=== PATIENT | female | born 1975 | race Caucasian/White ===

== ENCOUNTER 2022-01-11 09:51 | Outpatient (REF) | payer OTHER, SELFPAY ==
[2022-01-11 15:05] LABS: CT PCR NOT DETECTED (Not Detect.); NG PCR NOT DETECTED (Not Detect.)
[2022-01-12 13:14] LABS: BV Int Neg Control Negative (Negative); BV Int Pos Control Positive (Positive)
[2022-01-15 10:16] LABS: HPV mRNA E6/E7 rflx Not Detected (Not Detected)
== END 2022-01-11 09:52 | disposition home or self-care (01) ==
LOC: HO.LAB 09:51
PROVIDERS: Visit Provider Advanced Practice Midwife
DX: Z01.419 Encounter for gynecological examination (general) (routine) without abnormal findings (principal); Z20.2 Contact with and (suspected) exposure to infections with a predominantly sexual mode of transmission; Z87.42 Personal history of other diseases of the female genital tract
CPT/HCPCS: 87480; 87491; 87510; 87591; 87624; 87660; 88142

== ENCOUNTER 2022-02-08 09:11 | Outpatient (REF) | payer OTHER, SELFPAY ==
--- NOTE | ~2022-02-08 | MM_ITS ---
EXAMINATION: MM SCREENING DIGITAL BREAST TOMOSYNTHESIS, BILATERAL CLINICAL INFORMATION: Screening. Asymptomatic. The lifetime risk of breast cancer based on the Tyrer-Cuzick Model is 10%. COMPARISON: Mammography: 10/22/2017, 04/11/2016, 02/23/2015; targeted left breast ultrasound 05/24/2017 and 03/05/2015 . TECHNIQUE: Digital breast tomosynthesis is performed in both the craniocaudal and mediolateral oblique views along with computer-aided detection (CAD). Synthesized 2D images are generated from the tomosynthesis. FINDINGS: There are scattered areas of fibroglandular density (ACR BI-RADS breast composition Category b). There are no significant masses, abnormal calcifications, or other abnormalities. Intramammary node again seen mid upper outer left breast. The axilla and skin contours are unremarkable. No significant changes. MM/MM tomosynthesis screening BI IMPRESSION: No mammographic evidence of malignancy. ASSESSMENT: BI-RADS 2: Benign RECOMMENDATION: Routine annual mammography screening. This patient's information was entered into a reminder system with a target due date for their next mammogram.
== END 2022-02-08 09:12 | disposition home or self-care (01) ==
LOC: HO.MAMMO 09:11
PROVIDERS: Visit Provider Advanced Practice Midwife
DX: Z12.31 Encounter for screening mammogram for malignant neoplasm of breast (principal)
CPT/HCPCS: 77063; 77067

== ENCOUNTER 2022-04-01 09:06 | Emergency (ER) | payer OTHER, SELFPAY ==
[2022-04-01 09:12] VITALS: BP 150/81; PULSE 80; RESP 16; TEMP 36; O2SAT 100; BMI 23.8
[2022-04-01] MEDS: Tetracaine HCl/PF 0.5% Oph Sol 4 ML DROPS 3 DROP EYE-RIGHT (10:10)
[2022-04-01] MEDS: Fluorescein Sodium STRIP 1 STRIP EYE-RIGHT (10:10)
--- NOTE | 2022-04-01 10:18 | ED.EYEPROB ---
HPI - Eye Problem General Chief complaint: Eye Problems Stated complaint: R eye irritation Time Seen by Provider: 04/01/22 09:28 Source: patient Mode of arrival: ambulatory History of Present Illness HPI Narrative: 46-year-old female presenting to the ED complaining of foreign body sensation to right eye and mild swelling. Admits two days ago while outside something blew into eye and then rubbed it and subsequently felt pain. Denies wearing glasses or contacts. Denies vision loss or change. Also reports mild yellow discharge. Denies fever, chills chief complaint: eye pain and foreign body Onset (ago): day(s) Related Data Home Medications Medication Instructions Recorded Confirmed sumatriptan succinate 25 mg tablet 25 mg PO Q2-4H PRN 01/11/22 Previous Rx's Medication Instructions Recorded metronidazole 500 mg tablet 500 mg PO BID 7 days #14 tabs 01/17/22 erythromycin 5 mg/gram (0.5 %) eye 1 appl ophthalmic (eye) 6XD 7 days 04/01/22 ointment #3.5 grams Allergies Allergy/AdvReac Type Severity Reaction Status Date / Time No Known Allergies Allergy Verified 01/11/22 09:05 [No Known Allergies*] Review of Systems Review of Systems: Constitutional: No Fever, No Chills ENT/Mouth: No Ear Pain, No Nasal Congestion, No Sinus Pain, No Hoarseness, No sore throat, No Rhinorrhea, No Swallowing Difficulty Eyes: + Eye Pain, + Swelling, No Redness, + Foreign Body, + Discharge, No Vision Changes Cardiovascular: No Chest Pain, No SOB Respiratory: No Cough, No Sputum, No Wheezing Gastrointestinal: No Nausea, No Vomiting, No Diarrhea, No Constipation, No Abdominal pain Musculoskeletal: No joint pain, No Myalgias, No Joint Swelling Skin: No Skin Lesions, No rash Neuro: No Weakness, No Numbness, No Paresthesias Yes all other systems are reviewed and are negative Constitutional: Constitutional: Reports as per [facility] [place] Past Medical History Attestation statement: The following information was validated with the patient. Medical History History of pre-eclampsia History of stroke Hx of LEEP (loop electrosurgical excision procedure) of cervix complicating Neurocysticercosis Surgical History History of colposcopy Social History Social History Advance Directives: No Advance Directives Information Provided: Yes Physical Exam Vital Signs: Vital Signs: Last Vital Signs Temp 96.8 F 04/01/22 09:12 Pulse 80 04/01/22 09:12 Resp 16 04/01/22 09:12 BP 150/81 H 04/01/22 09:12 Pulse Ox 100 04/01/22 09:12 O2 Del Method 04/01/22 09:12 BMI result Body Mass Index 23.8 Const: General: cooperative, healthy appearing and no acute distress Orientation/consciousness: patient oriented x3 Limitations: no limitations HEENT: Head: Yes normal to inspection and Yes atraumatic Ears: hearing grossly normal bilaterally General nose exam: Normal external nose present Face and sinus: Yes normal facial exam Eyes: Other: VA- L 20/20, R 20/50. + right lower eyelid internal hordeolum with mild swelling/puffiness. No erythema/warmth. EOMs intact without pain General: appearance normal, both eyes and all related structures Corneas: corneas abnormal on the right fluorescein used and abrasion at the following clock position (3) and fluorescein used Pupils: Equal, round and reactive pupils present EOM: EOMs intact bilaterally and no movement deficit Direct Ophthalmoscopy: normal light reflex and no photophobia Neck: Neck: Yes normal visual inspection and Yes no meningeal signs Resp: Effort & Inspection: normal respiratory effort and no respiratory distress Cardio: Rate: regular rate Heart sounds: S1 normal heart sound present and S2 normal heart sound present Skin: Rashes: no rashes Wounds: no wounds Neuro: General: patient oriented x3, tone normal and no meningeal signs Cranial nerves: Yes Equal, round and reactive pupils present Gait exam (Neuro): Normal gait present Extrem: General: Yes normal to inspection Medications Administered Discontinued Medications Generic Name Dose Route Start Last Admin Trade Name Freq PRN Reason Stop Dose Admin Fluorescein Sodium 1 strip 04/01/22 09:33 04/01/22 10:10 Fluorescein Sodium Strip EYE-RIGHT 04/01/22 09:34 1 strip ONCE ONE Administration Tetracaine HCl 3 drop 04/01/22 09:33 04/01/22 10:10 Tetracaine Hcl/Pf 0.5% Oph Viridiana 4 Ml Drops EYE-RIGHT 04/01/22 09:34 3 drop ONCE ONE Administration MDM - Eye Problem MDM Narrative Medical decision making narrative: 46-year-old female presenting to the ED complaining of foreign body sensation to right eye and mild swelling. On exam vital signs stable, PE as above with noted right eye cordial limb and corneal abrasion. No evidence of orbital or preorbital cellulitis. No evidence of orbital blowout fracture/trauma Plan: Erythromycin ointment Differential Diagnosis Differential diagnosis: Likely corneal abrasion, conjunctivitis and corneal ulcer; Unlikely periorbital cellulitis Medical Records Attestation: I reviewed the patient's medical records. Lab Data Attestation: I reviewed the patient's lab results. Discharge Plan Discharge Clinical Impression: Corneal abrasion, Hordeolum Patient Disposition: Home, Self-Care Instructions: Corneal Abrasion (ED), Stye (ED) Additional Instructions: You have a small corneal abrasion on your eye, apply eye ointment as prescribed. Need to follow-up with ophthalmology You also have a stye. Apply warm compresses and lightly massaged area. It is recommended you also take Claritin or Zyrtec. If you developed vision change or loss, persistent or worsening pain, area looks infected return to the emergency department Prescriptions: New erythromycin 5 mg/gram (0.5 %) ointment 1 appl ophthalmic (eye) 6XD 7 Days Qty: 3.5 0RF No Action metronidazole 500 mg tablet 500 mg PO BID 7 Days Qty: 14 0RF Rx Instructions: Take with food, Avoid alcohol and vinegar products sumatriptan succinate 25 mg tablet 25 mg PO Q2-4H PRN Rx Instructions: do not exceed 8 doses per 24 hrs Referrals: Sriram Lipscomb [Physician] - 5 days
== END 2022-04-01 10:38 | disposition home or self-care (01) ==
PROVIDERS: Emergency Provider Emergency Medicine; PCP Internal Medicine
DX: S05.01XA Injury of conjunctiva and corneal abrasion without foreign body, right eye, initial encounter (principal); H00.011 Hordeolum externum right upper eyelid; X58.XXXA Exposure to other specified factors, initial encounter; Y93.9 Activity, unspecified; Y92.9 Unspecified place or not applicable; Y99.9 Unspecified external cause status
CPT/HCPCS: 99283

== ENCOUNTER 2022-04-13 17:39 | Emergency (ER) | payer OTHER, SELFPAY ==
--- NOTE | ~2022-04-13 | CT_ITS ---
EXAMINATION: CT HEAD WITHOUT CONTRAST CLINICAL INFORMATION: Dizziness COMPARISON: 12/19/2018 TECHNIQUE: Contiguous axial imaging was performed from the skull base to vertex without intravenous administration of contrast. This CT examination was performed using dose optimization techniques as appropriate, variously including the following: *Automated exposure control *Adjustment of mA and/or kV according to patient size (this includes techniques or standardized protocols for targeted exams where dose is matched to indication/reason for exam; i.e. extremities or head) *Use of iterative reconstruction technique DLP: 693 mGy-cm FINDINGS: There is no evidence of acute intracranial hemorrhage or territorial infarction. No abnormal mass effect or midline shift is seen. Shirley to white matter differentiation is well preserved. No extra-axial fluid collections are identified. No hydrocephalus. No significant volume loss. Subtle patchy subcortical and ventricular white matter low-attenuation changes has better seen on the concurrent MRI. Stable coarse calcifications in the left caudate head, and the left anterior frontal subarachnoid space adjacent to the superior frontal gyrus. No acute osseous or soft tissue abnormality. The mastoid air cells and visualized portions of the paranasal sinuses are well aerated. CT/CT head/brain wo IV con IMPRESSION: No acute intracranial pathology.
--- NOTE | ~2022-04-13 | XR_ITS ---
EXAMINATION: XR chest 1V CLINICAL INFORMATION: Reason for Exam dizziness COMPARISON: None TECHNIQUE: XR chest 1V Tubes and lines: None Lungs and pleura: Both lungs are clear. Bilateral rounded small densities projecting over the left middle lung zone likely nipple shadow. Heart and mediastinum: The mediastinum is within normal limits.. Bones/soft tissue: Skeletal structures included are normal for patient's age. XR/XR chest 1V IMPRESSION: No radiographic evidence of acute cardiopulmonary disease.
--- NOTE | ~2022-04-13 | MR_ITS ---
EXAMINATION: MR BRAIN WITHOUT CONTRAST CLINICAL INFORMATION: Dizziness. COMPARISON: Head CT 04/13/2022. TECHNIQUE: Multiplanar, multisequence imaging of the brain was performed without intravenous contrast. FINDINGS: There is no acute infarction, mass, hemorrhage, or extra-axial collection. The ventricles, sulci, and basilar cisterns are normal in size and configuration. Mild foci of T2/FLAIR hyperintensity are seen within the cerebral white matter, a nonspecific finding which is unchanged compared with 2019. The flow voids of the major intracranial arteries appear intact. Hyperostosis of the right frontal table is again demonstrated without change. Stable mild mass effect on the frontal lobe parenchyma. There is a small amount of mastoid fluid. MR/MR head/brain wo con IMPRESSION: No acute infarct, mass lesion, intracranial hemorrhage, or evidence of hydrocephalus. Stable nonspecific foci of T2/FLAIR hyperintensity in the cerebral white matter. Stable hyperostosis of the right frontal table.
[2022-04-13 17:55] VITALS: BP 133/73; PULSE 80; RESP 16; TEMP 36.8; O2SAT 100; BMI 23.8
--- NOTE | 2022-04-13 17:57 | PC.NURSE ---
friend request to be contacted to brain picker patient when she is ready for DC or for update on plan of care, Elisha # [phone]
--- NOTE | 2022-04-13 18:18 | ECG_ITS ---
Test Reason : DIZZINESS Blood Pressure : / mmHG Vent. Rate : 071 BPM Atrial Rate : 071 BPM P-R Int : 118 ms QRS Dur : 088 ms QT Int : 386 ms P-R-T Axes : 035 033 -07 degrees QTc Int : 419 ms Normal sinus rhythm Nonspecific T wave abnormality Abnormal ECG No previous ECGs available Referred By: Larissa Albert Electronically Signed By:JOVAN DE LA VEGA MD
--- NOTE | 2022-04-13 18:21 | ED.DIZZY ---
HPI - Dizziness General Chief Complaint: Dizziness Stated Complaint: High BP, migraine, vomiting, dizzy Time Seen by Provider: 04/13/22 18:04 Source: patient Mode of arrival: ambulatory Limitations: no limitations History of Present Illness HPI Narrative: 46-year-old female came in for evaluation of dizziness. Symptoms started since yesterday at 05:00 when she woke up from sleep as room spinning and feeling everything is moving symptoms well as worsening with turning her head especially to the left side, symptoms was associated with headache, nausea, and vomiting. Symptoms improved as the day wore on then today in the morning patient woke up with similar symptoms of feeling everything is moving and spinning. Patient's symptoms worsening with looking to the left side. No ear pain or tinnitus. No fever or chills, no weakness or numbness. Patient feels like fluid moving in her left ear and the vertigo is worsening when turned the head to the left. Related Data Home Medications Medication Instructions Recorded Confirmed sumatriptan succinate 25 mg tablet 25 mg PO Q2-4H PRN 01/11/22 Previous Rx's Medication Instructions Recorded metronidazole 500 mg tablet 500 mg PO BID 7 days #14 tabs 01/17/22 erythromycin 5 mg/gram (0.5 %) eye 1 appl ophthalmic (eye) 6XD 7 days 04/01/22 ointment #3.5 grams amoxicillin 500 mg-potassium 1 tab PO BID #14 tabs 04/13/22 clavulanate 125 mg tablet (Augmentin) prednisone 20 mg tablet 20 mg PO BID #10 tabs 04/13/22 Allergies Allergy/AdvReac Type Severity Reaction Status Date / Time No Known Allergies Allergy Verified 01/11/22 09:05 [No Known Allergies*] Review of Systems Review of Systems: All other systems are reviewed and are negative Constitutional: Reports as per HPI and Reports no additional constitutional complaints Eyes: Reports as per HPI and Reports no additional eye complaints Reports system reviewed and no additional complaints, except as documented Cardiovascular: Reports as per HPI and Reports no additional cardiovascular complaints Respiratory: Reports as per HPI and Reports no additional respiratory complaints Gastrointestinal: Reports as per HPI and Reports no additional gastrointestinal complaints Genitourinary: Reports no additional female genitourinary complaints Musculoskeletal: Reports no additional musculoskeletal complaints Skin/Breast: Reports system reviewed and no additional complaints, except as docu Psychiatric: Reports no additional psychiatric complaints Endocrine: Reports no additional endocrine complaints Hematologic/Lymphatic: Reports no additional hematologic/lymphatic complaints Allergic/Immunologic: Reports no additional allergic/immunologic complaints Reports system reviewed and no additional complaints, except as documented and Reports Abnormal speech present [facility] Past Medical History Medical History History of pre-eclampsia History of stroke Hx of LEEP (loop electrosurgical excision procedure) of cervix complicating Neurocysticercosis Surgical History History of colposcopy Social History Social History Alcohol intake: current Alcohol intake frequency: other Alcohol type: beer and wine Smoked in Last 30 Days: No Use of substances other than those prescribed or required for medical reasons: No Advance Directives: No Patient : No Physical Exam Vital Signs: Vital Signs: Last Vital Signs Temp 98.1 F 04/13/22 20:00 Pulse 77 04/13/22 20:00 Resp 16 04/13/22 20:00 BP 127/68 04/13/22 20:00 Pulse Ox 100 04/13/22 20:00 O2 Del Method 04/13/22 20:00 BMI result Body Mass Index 23.8 Vital signs have been reviewed as appeared to be correct. Blood pressure normal. Heart rate normal. Respiration rate normal. Temperature normal. Oxygen saturation normal. Appearance: Alert. Oriented X3. No acute distress. Head: Normal external exam. Normocephalic. Atraumatic. No Choudhury signs noted. No raccoon eyes noted Eyes: PERRLA. EOMI. Conjunctiva and sclera normal. Eyelids normal. ENT: Left TM erythema no bulging. Pharynx normal. Uvula midline. Moist mucous membranes. No trismus noted. No drooling noted. No muffled voice noted. Neck: Normal inspection. Neck supple. FROM. No adenopathy. Thyroid Normal. No meningeal signs. No neck mass noted. CVS: Normal heart rate and rhythm. Heart sound normal. No murmurs noted. Pulses normal throughout. Respiratory: No respiratory distress. Painless inspiration. Breath sounds normal. No wheezes/rales/rhonchi noted. Chest nontender. No accessory muscle usage noted or decreased air movement noted. Abdomen: Soft and nontender. Bowel sounds normal in all 4 quadrants. No distention noted. No organomegaly noted. No visible injury noted. Back: No CVA tenderness. Full range of motion noted. Skin: Skin warm and dry. Normal skin color. Normal skin turgor. No rashes/lesions/lacerations noted. Extremities: No lower extremity edema. Extremities exhibit normal range of motion. Extremities nontender. Neuro: Oriented X 3. Cranial nerve exam: II-XII are grossly intact No motor deficit. No sensory deficit. Reflexes normal. NIH Stroke Scale Time: 18:25 Level of Consciousness: Alert Level of Consciousness Questions: Answers both questions correctly Level of Consciousness Commands: Performs both tasks correctly Best Gaze: Normal Visual: No visual loss Facial Palsy: Normal Motor Arm (Right): No drift Motor Arm (Left): No drift Motor Leg (Right): No drift Motor Leg (Left): No drift Limb Ataxia: Absent Sensory: Normal Best Language: No aphasia Dysarthia: Normal Extinction and Inattention: No abnormality Score: 0 Course Course Course Narrative: 46-year-old female came in with positional vertigo exam and history is consistent with left ear labyrinthitis will start the patient on Augmentin and prednisone. Normal neuro exam otherwise, CT/MRI of the brain is unremarkable for acute stroke or acute pathology. Unremarkable labs except for mild leukocytosis likely due to stress or labyrinthitis, patient reported improvement of her symptoms able to tolerate p.o. intake with no nausea or vomiting. Medications Administered Discontinued Medications Generic Name Dose Route Start Last Admin Trade Name Freq PRN Reason Stop Dose Admin Al Hydroxide/Mg Hydroxide 30 ml 04/13/22 18:20 04/13/22 20:05 Magnesium Hydrox/Alum Hydrox 30 Ml Oral.Susp PO 04/13/22 18:21 30 ml ONCE ONE Administration Sodium Chloride 1,000 mls @ 999 mls/hr 04/13/22 18:17 04/13/22 21:11 Ns IV 04/13/22 19:17 Infused .Q1H1M ONE Infusion Meclizine HCl 25 mg 04/13/22 18:20 04/13/22 20:05 Meclizine Hcl 25 Mg Tablet PO 04/13/22 18:21 25 mg ONCE ONE Administration Ondansetron HCl 4 mg 04/13/22 18:17 04/13/22 20:04 Ondansetron Hcl 4 Mg/2 Ml Vial IVPUSH 04/13/22 18:18 4 mg ONCE ONE Administration MDM - Dizziness Lab Data Attestation: I reviewed the patient's lab results. Result diagrams: 04/13/22 19:41 04/13/22 19:41 Labs: Lab Results 04/13/22 04/13/22 04/13/22 Range/Units 19:41 19:41 19:41 WBC 13.0 H (4.8-10.8) X10*3/uL RBC 4.46 (4.20-5.50) X10*6/uL Hgb 12.6 (12.0-16.0) g/dl Hct 38.7 (37.0-47.0) % MCV 86.8 (80.0-98.0) fL MCH 28.3 (27.0-33.0) pg MCHC 32.6 (31.0-35.0) g/dl RDW 12.6 (11.0-16.0) % Plt Count 281 (160-400) X10*3/uL MPV 10.4 (9.4-12.3) fL Immature Gran % (Auto) 0.5 H (0.0-0.4) % Neut % (Auto) 91.2 H (45-73) % Lymph % (Auto) 5.5 L (20-40) % Wood[place] % (Auto) 2.5 (2-11) % Eos % (Auto) 0.1 (0-4) % Baso % (Auto) 0.2 (0-2) % Lymph # (Auto) 0.7 L (1.2-4.9) X10*3/uL [place] # (Auto) 0.3 (0.1-1.2) X10*3/uL Eos # (Auto) 0.0 (0.0-0.4) X10*3/uL Baso # (Auto) 0.0 (0.0-0.2) X10*3/uL Abs Immat Gran (auto) 0.07 H (0.00-0.03) X10*3/uL Absolute Neuts (auto) 11.8 H (2.0-8.3) x10*3/uL Absolute Nucleated RBC 0.000 (0.0-0.012) X10*3/uL Nucleated RBC % (auto) 0.0 (0.0-0.2) /100WBC Smear Tech's Comments VERIFIED Sodium 138 (135-145) mmol/L Potassium 3.9 (3.3-5.1) mmol/L Chloride 104 (96-108) mmol/L Carbon Dioxide 24 (22-29) mmol/L Anion Gap 14 (12-20) BUN 17 H (9-16) mg/dL Creatinine 0.68 (0.5-1.4) mg/dL Estim Creat Clear Calc 80.8 Estimated GFR > 60 Random Glucose 119 H (60-115) mg/dL Calcium 9.5 (8.4-10.2) mg/dL Total Bilirubin 0.7 (0.0-1.0) mg/dL Direct Bilirubin 0.2 (0.0-0.5) mg/dL AST 17 (5-31) U/L ALT 20 (0-31) U/L Alkaline Phosphatase 85 (39-117) U/L Troponin I High Sens < 3.5 (<3.5-17.0) ng/L Total Protein 7.7 (6.5-8.0) g/dL Albumin 4.8 (3.5-5.0) g/dL Lipase 23 (8-78) U/L Urine Color Urine Appearance Urine pH (5.0-9.0) Ur Specific Cheriton (1.005-1.025) Urine Protein (Neg-Trace) mg/dL Urine Glucose (UA) (Negative) mg/dL Urine Ketones (Negative) mg/dL Urine Blood (Negative) Urine Nitrite (Negative) Ur Leukocyte Esterase (Negative) 04/13/22 Range/Units 20:52 WBC (4.8-10.8) X10*3/uL RBC (4.20-5.50) X10*6/uL Hgb (12.0-16.0) g/dl Hct (37.0-47.0) % MCV (80.0-98.0) fL MCH (27.0-33.0) pg MCHC (31.0-35.0) g/dl RDW (11.0-16.0) % Plt Count (160-400) X10*3/uL MPV (9.4-12.3) fL Immature Gran % (Auto) (0.0-0.4) % Neut % (Auto) (45-73) % Lymph % (Auto) (20-40) % Woodford % (Auto) (2-11) % Eos % (Auto) (0-4) % Baso % (Auto) (0-2) % Lymph # (Auto) (1.2-4.9) X10*3/uL Woodford # (Auto) (0.1-1.2) X10*3/uL Eos # (Auto) (0.0-0.4) X10*3/uL Baso # (Auto) (0.0-0.2) X10*3/uL Abs Immat Gran (auto) (0.00-0.03) X10*3/uL Absolute Neuts (auto) (2.0-8.3) x10*3/uL Absolute Nucleated RBC (0.0-0.012) X10*3/uL Nucleated RBC % (auto) (0.0-0.2) /100WBC Smear Tech's Comments Sodium (135-145) mmol/L Potassium (3.3-5.1) mmol/L Chloride (96-108) mmol/L Carbon Dioxide (22-29) mmol/L Anion Gap (12-20) BUN (9-16) mg/dL Creatinine (0.5-1.4) mg/dL Estim Creat Clear Calc Estimated GFR Random Glucose (60-115) mg/dL Calcium (8.4-10.2) mg/dL Total Bilirubin (0.0-1.0) mg/dL Direct Bilirubin (0.0-0.5) mg/dL AST (5-31) U/L ALT (0-31) U/L Alkaline Phosphatase (39-117) U/L Troponin I High Sens (<3.5-17.0) ng/L Total Protein (6.5-8.0) g/dL Albumin (3.5-5.0) g/dL Lipase (8-78) U/L Urine Color Yellow Urine Appearance Clear Urine pH 7.0 (5.0-9.0) Ur Specific Cheriton 1.025 (1.005-1.025) Urine Protein Trace (Neg-Trace) mg/dL Urine Glucose (UA) Negative (Negative) mg/dL Urine Ketones Trace (Negative) mg/dL Urine Blood Negative (Negative) Urine Nitrite Negative (Negative) Ur Leukocyte Esterase Negative (Negative) Imaging Data CT scan - head: Attestation: I personally reviewed and interpreted this imaging study as follows: Radiologist's impression: No acute intracranial pathology. Brain MRI: Attestation: I personally reviewed and interpreted this imaging study as follows: Radiologist's impression: No acute infarct, mass lesion, intracranial hemorrhage, or evidence of hydrocephalus. Stable nonspecific foci of T2/FLAIR hyperintensity in the cerebral white matter. Stable hyperostosis of the right frontal table. ? Chest x-ray: Attestation: I personally reviewed and interpreted this imaging study as follows: Radiologist's impression: No radiographic evidence of acute cardiopulmonary disease. ECG Data Attestation: I personally reviewed and interpreted this ECG as follows: Interpretation: Normal sinus rhythm at 71 beats per minutes, normal axis deviation, normal intervals (not significantly and slightly short PA), nonspecific T-wave inversion in the inferior leads. Discharge Plan Discharge Clinical Impression: Labyrinthitis of left ear, Peripheral vertigo Patient Disposition: Home, Self-Care Instructions: Labyrinthitis (ED), Vertigo (ED) Prescriptions: New amoxicillin-pot clavulanate [Augmentin] 500-125 mg tablet 1 tab PO BID Qty: 14 0RF prednisone 20 mg tablet 20 mg PO BID Qty: 10 0RF No Action metronidazole 500 mg tablet 500 mg PO BID 7 Days Qty: 14 0RF Rx Instructions: Take with food, Avoid alcohol and vinegar products erythromycin 5 mg/gram (0.5 %) ointment 1 appl ophthalmic (eye) 6XD 7 Days Qty: 3.5 0RF sumatriptan succinate 25 mg tablet 25 mg PO Q2-4H PRN Rx Instructions: do not exceed 8 doses per 24 hrs Referrals: Viridiana Vance MD [Primary Care Provider] -
[2022-04-13 19:48] VITALS: BP 131/74; PULSE 80; RESP 18; TEMP 36.8; O2SAT 100
[2022-04-13 19:49] VITALS: BP 131/74; PULSE 80; RESP 18; TEMP 36.8; O2SAT 100
[2022-04-13 19:52] LABS: Basophils Percent Auto 0.2 % (0-2); Eosinophils Percent Auto 0.1 % (0-4); Hematocrit 38.7 % (37.0-47.0); Hemoglobin 12.6 g/dl (12.0-16.0); Imm Gran Abs Auto 0.07 X10*3/uL (0.00-0.03); Imm Gran Pct Auto 0.5 % (0.0-0.4); Lymphocytes Absolute Auto 0.7 X10*3/uL (1.2-4.9); Lymphocytes Percent Auto 5.5 % (20-40); MANUAL DIFF FLAG SCAN; Mean Corpuscular HGB Conc 32.6 g/dl (31.0-35.0); Mean Corpuscular Hemoglobin 28.3 pg (27.0-33.0); Mean Corpuscular Volume 86.8 fL (80.0-98.0); Mean Platelet Volume 10.4 fL (9.4-12.3); Monocytes Absolute Auto 0.3 X10*3/uL (0.1-1.2); Monocytes Percent Auto 2.5 % (2-11); Neutrophils Absolute Auto 11.8 x10*3/uL (2.0-8.3); Neutrophils Percent Auto 91.2 % (45-73); Platelet Count 281 X10*3/uL (160-400); Red Blood Count 4.46 X10*6/uL (4.20-5.50); Red Cell Distribution Width 12.6 % (11.0-16.0); SCAN SMEAR FLAG 1
[2022-04-13 20:00] VITALS: BP 127/68; PULSE 77; RESP 16; TEMP 36.7; O2SAT 100
[2022-04-13] MEDS: 0.9 % Sodium Chloride 1,000 ML 999 ML IV (20:04)
[2022-04-13] MEDS: ondansetron HCL 4 MG/2 ML VIAL IVPUSH (20:04)
[2022-04-13] MEDS: Meclizine HCl 25 MG TABLET PO (20:05)
[2022-04-13] MEDS: Magnesium Hydrox/Alum Hydrox 30 ML ORAL.SUSP PO (20:05)
[2022-04-13 20:12] LABS: SLIDE REVIEW VERIFIED
[2022-04-13 20:15] LABS: Alanine Aminotransferase 20 U/L (0-31); Albumin Level 4.8 g/dL (3.5-5.0); Alkaline Phosphatase 85 U/L (39-117); Anion Gap 14 (12-20); Aspartate Amino Transferase 17 U/L (5-31); Bilirubin Direct 0.2 mg/dL (0.0-0.5); Bilirubin Total 0.7 mg/dL (0.0-1.0); Blood Urea Nitrogen 17 mg/dL (9-16); Calcium 9.5 mg/dL (8.4-10.2); Carbon Dioxide 24 mmol/L (22-29); Chloride 104 mmol/L (96-108); Creatinine Clr Calc Pharmacy 80.8; Estimated Glomerular Filt Rate > 60; Glucose Random 119 mg/dL (60-115); Lipase 23 U/L (8-78); Potassium 3.9 mmol/L (3.3-5.1); Sodium 138 mmol/L (135-145); Total Protein 7.7 g/dL (6.5-8.0)
[2022-04-13 20:17] LABS: Troponin-I High Sensitivity < 3.5 ng/L (<3.5-17.0)
--- NOTE | 2022-04-13 20:23 | PC.NURSE ---
Pt received IV fluids and meds late d/t she was in MRI. Pt received IV meds once IV site was started.
[2022-04-13 20:58] LABS: Appearance Urine Clear; Color Urine Yellow; Glucose Urine UA Negative (Negative); Leukocyte Esterase Urine Negative (Negative); Nitrite Urine Negative (Negative); Specific Gravity - Urine 1.025 (1.005-1.025); Urine Blood Negative (Negative); Urine Ketones Trace mg/dL (Negative); Urine Protein Trace mg/dL (Neg-Trace)
--- NOTE | 2022-04-13 21:01 | PC.NURSE ---
Received incoming call from friend Sage Smiley. Received verbal consent from patient okay to update friend of patient's status. Pt currently reporting nausea is improving after receiving IV zofran. Pt reporting she feels a little better compared to pre med administration. Friend requests to get a call once pt is ready for discharge as she would provide transportation to patient. Sage Smiley phone number .
[2022-04-13] MEDS: predniSONE 20 MG TABLET 40 MG PO (22:14)
[2022-04-13] MEDS: Amoxicillin/Potassium Clav 500 MG TABLET PO (22:14)
--- NOTE | 2022-04-13 22:22 | PC.NURSE ---
Discharge instructions reviewed with pt. Pt verbalizes understanding. R ac IV removed.
== END 2022-04-13 22:23 | disposition home or self-care (01) ==
PROVIDERS: Emergency Provider Emergency Medicine; PCP Internal Medicine
DX: H83.02 Labyrinthitis, left ear (principal); G43.909 Migraine, unspecified, not intractable, without status migrainosus; R42 Dizziness and giddiness; Z79.899 Other long term (current) drug therapy
CPT/HCPCS: 36415; 70450; 70551; 71045; 80048; 80076; 81003; 83690; 84484; 85025; 93005; 96361; 96374; 99285; J2405

== ENCOUNTER 2022-09-06 08:11 | Outpatient (REF) | payer OTHER, SELFPAY ==
[2022-09-06 11:11] LABS: MANUAL DIFF FLAG NO
[2022-09-06 11:34] LABS: Basophils Percent Auto 0.4 % (0-2); Eosinophils Absolute Auto 0.1 X10*3/uL (0.0-0.4); Eosinophils Percent Auto 1.7 % (0-4); Hematocrit 38.2 % (37.0-47.0); Imm Gran Abs Auto 0.04 X10*3/uL (0.00-0.03); Imm Gran Pct Auto 0.5 % (0.0-0.4); Lymphocytes Absolute Auto 1.8 X10*3/uL (1.2-4.9); Lymphocytes Percent Auto 23.9 % (20-40); Mean Corpuscular HGB Conc 31.4 g/dl (31.0-35.0); Mean Corpuscular Hemoglobin 27.8 pg (27.0-33.0); Mean Corpuscular Volume 88.6 fL (80.0-98.0); Mean Platelet Volume 11.2 fL (9.4-12.3); Monocytes Absolute Auto 0.5 X10*3/uL (0.1-1.2); Monocytes Percent Auto 6.1 % (2-11); Neutrophils Absolute Auto 5.2 x10*3/uL (2.0-8.3); Neutrophils Percent Auto 67.4 % (45-73); Platelet Count 257 X10*3/uL (160-400); Red Blood Count 4.31 X10*6/uL (4.20-5.50); Red Cell Distribution Width 13.4 % (11.0-16.0); White Blood Count 7.7 X10*3/uL (4.8-10.8)
[2022-09-06 12:27] LABS: Alanine Aminotransferase 15 U/L (0-31); Anion Gap 11 (12-20); Aspartate Amino Transferase 16 U/L (5-31); Blood Urea Nitrogen 15 mg/dL (9-16); Calcium 8.8 mg/dL (8.4-10.2); Carbon Dioxide 25 mmol/L (22-29); Chloride 110 mmol/L (96-108); Cholesterol 171 mg/dL; Estimated Glomerular Filt Rate > 60; Glucose Fasting 91 mg/dL (60-99); HDL Cholesterol 51 mg/dL; LDL Cholesterol Calculated 104 mg/dl; Potassium 4.5 mmol/L (3.3-5.1); Sodium 141 mmol/L (135-145); Triglycerides 82 mg/dL
[2022-09-06 12:34] LABS: TSH reflex Free T4 1.91 uIU/mL (0.32-4.0); Vitamin D 25-OH Total 13.6 ng/mL (>30)
== END 2022-09-06 08:12 | disposition home or self-care (01) ==
LOC: HO.HMGCLDS 08:11
PROVIDERS: PCP Internal Medicine; Visit Provider Internal Medicine
DX: G43.909 Migraine, unspecified, not intractable, without status migrainosus (principal)
CPT/HCPCS: 36415; 80048; 80061; 82306; 84443; 84450; 84460; 85025

== ENCOUNTER → 2022-10-04 14:03 | Outpatient (BNVA) | payer OTHER, SELFPAY | PROVIDERS: PCP Internal Medicine; Visit Provider Nurse Practitioner Family | DX: Z12.11 Encounter for screening for malignant neoplasm of colon (principal) | CPT/HCPCS: 99202 ==

== ENCOUNTER 2022-10-31 10:03 | Emergency (ER) | payer OTHER, SELFPAY ==
[2022-10-31 10:14] VITALS: BP 142/82; PULSE 80; RESP 18; TEMP 37.1; O2SAT 98; BMI 23.8
--- NOTE | 2022-10-31 10:31 | ED.NAVMDI ---
HPI - Nausea/Vomiting/Diarrhea General Chief complaint: Nausea/Vomiting/Diarrhea Stated complaint: Vomiting Time Seen by Provider: 10/31/22 10:31 Source: patient Mode of arrival: ambulatory Limitations: no limitations History of Present Illness HPI Narrative: This is a 46-year-old female history of migraines presenting to the emergency department complaints of fatigue, malaise, nausea, vomiting and intermittent abdominal cramping since Monday, patient reports that she vomits each time she tries to eat, she reports that her son is sick with similar symptoms. She reports associated weakness. She tells me she has actually been feeling better today and has not had an episode of nausea and vomiting but she just wanted to get evaluated. She tells me she is not having any abdominal pain, however over the past few days she just gets random Mild abdominal cramping throughout. Patient denies chest pain, shortness of breath, hematemesis, nausea, vomiting, abdominal pain, diarrhea, headache, vision changes, dizziess at this time. Related Data Home Medications Medication Instructions Recorded Confirmed sumatriptan succinate 25 mg tablet 25 mg PO Q2-4H PRN 01/11/22 Previous Rx's Medication Instructions Recorded bisacodyl 5 mg tablet,delayed 10 mg PO ONCE 1 day #2 tabs 10/04/22 release (Dulcolax (bisacodyl)) polyethylene glycol 3350 17 238 g PO ONCE #238 grams 10/04/22 gram/dose oral powder (Miralax) ondansetron 4 mg disintegrating 4 mg PO Q6H PRN nausea and 10/31/22 tablet vomiting #14 tabs Allergies Allergy/AdvReac Type Severity Reaction Status Date / Time No Known Allergies Allergy Verified 10/31/22 10:16 [No Known Allergies*] Review of Systems Review of Systems: Constitutional : No Weight loss, No Fever, No Chills, + Fatigue, + Malaise ENT/Mouth : No sore throat, No Rhinorrhea Eyes: No Eye Pain, No Swelling, No Redness Cardiovascular : No Chest Pain, No SOB, No Dyspnea on Exertion, No Orthopnea, No Edema, No Palpitations Respiratory : No Cough, No Sputum, No Wheezing Gastrointestinal : + Nausea, + Vomiting, No Diarrhea, No Constipation, No abdominal Pain, No Hematochezia, No Melena Genitourinary : No Dysuria, No Urinary Frequency, No Hematuria, Musculoskeletal : No joint pain, No Myalgias, No Joint Swelling Skin : No Skin Lesions, No rash Neuro : + Weakness, No Numbness, No Dizziness, No Headache Psych : No Anxiety/Panic, No Depression All other systems reviewed and are negative Yes all other systems are reviewed and are negative [facility] Past Medical History Attestation statement: The following information was validated with the patient. Source: old records reviewed and nursing notes reviewed Medical History Dysmenorrhea Heavy menstrual bleeding History of pre-eclampsia History of stroke Hx of abnormal cervical Pap smear Hx of LEEP (loop electrosurgical excision procedure) of cervix complicating Migraine Neurocysticercosis Surgical History History of colposcopy Social History Social History Housing: House Alcohol intake: current Alcohol intake frequency: other Alcohol type: beer and wine Patient Tobacco Use Status: Never used Tobacco e-Cigarette/Vaping Use: Never Used Advance Directives: No Advance Directives Information Provided: Yes Current occupational status: unemployed Cognitive needs: No Hearing needs: No Vision needs: No Physical Exam Vital Signs: Vital Signs: Last Vital Signs Temp 98.7 F 10/31/22 10:14 Pulse 80 10/31/22 10:14 Resp 18 10/31/22 10:14 BP 142/82 H 10/31/22 10:14 Pulse Ox 98 10/31/22 10:14 O2 Del Method Room Air 10/31/22 10:14 BMI result Body Mass Index 23.8 vital signs stable Appearance: Alert.? Oriented X3.? No acute distress.? Head: Normocephalic, atraumatic, no step-offs or deformities Eyes: Pupils equal, round and reactive to light.?? CVS: Normal heart rate and rhythm.? Pulses normal.? Respiratory: No respiratory distress.? Breath sounds normal.? Abdomen: Soft and nontender.? Negative Bryan's, Rovsing, McBurney's point. Skin: Skin warm and dry.? Normal skin color.? Normal skin turgor.? Extremities: No lower extremity edema.? No calf ttp. 5/5 strength to bilateral upper and lower extremities Neuro: Oriented X 3.? No motor deficit.? No sensory deficit. CN 2-12 intact Course Reevaluation(s) Reevaluation #1: CBC within normal limits. Chemistry unremarkable. Chemistry unremarkable. UA likely contaminated, patient without UTI symptoms, there is 6-8 epithelial cells, will not treat for UTI at this time. Flu and COVID pending. Patient to be discharged will call her if results are positive. Tolerating p.o., no abdominal tenderness on re-evaluation. Educated patient on diagnosis and treatment plan, answered all question, patient verbalizes understanding. At this time patient will be discharged home, advised to return with new or worsening symptoms. Educated on worrisome signs and symptoms and when to return. At this time I feel comfortable discharge home. Time: 11:28 Medical Decision Making Medical Decision Making [facility] Narrative: Patient is a 46 year old female presenting with 1 day of nausea, vomiting and weakness. Physical exam benign. Differential diagnosis includes likely viral illness, gastritis, gastroenteritis, COVID, flu. Unlikely bowel obstruction, appendicitis, acute cholecystitis, pancreatitis, acute abdomen, diverticulitis Plan labs, viral test Differential Diagnosis Differential Diagnoses: The differential diagnosis associated with the presentation includes Differential diagnosis includes likely viral illness, gastritis, gastroenteritis, COVID, flu. Unlikely bowel obstruction, appendicitis, acute cholecystitis, pancreatitis, acute abdomen, diverticulitis Lab Data [facility] Lab Attestation statement: I reviewed the patient's lab results. 10/31/22 10:34 10/31/22 10:34 Labs: Lab Results 10/31/22 10/31/22 10/31/22 Range/Units 10:34 10:34 11:11 WBC 10.5 (4.8-10.8) X10*3/uL RBC 4.55 (4.20-5.50) X10*6/uL Hgb 12.8 (12.0-16.0) g/dl Hct 39.4 (37.0-47.0) % MCV 86.6 (80.0-98.0) fL MCH 28.1 (27.0-33.0) pg MCHC 32.5 (31.0-35.0) g/dl RDW 13.1 (11.0-16.0) % Plt Count 274 (160-400) X10*3/uL MPV 10.5 (9.4-12.3) fL Immature Gran % (Auto) 0.2 (0.0-0.4) % Neut % (Auto) 78.7 H (45-73) % Lymph % (Auto) 16.0 L (20-40) % Granite % (Auto) 4.5 (2-11) % Eos % (Auto) 0.2 (0-4) % Baso % (Auto) 0.4 (0-2) % Lymph # (Auto) 1.7 (1.2-4.9) X10*3/uL Granite # (Auto) 0.5 (0.1-1.2) X10*3/uL Eos # (Auto) 0.0 (0.0-0.4) X10*3/uL Baso # (Auto) 0.0 (0.0-0.2) X10*3/uL Abs Immat Gran (auto) 0.02 (0.00-0.03) X10*3/uL Absolute Neuts (auto) 8.3 (2.0-8.3) x10*3/uL Absolute Nucleated RBC 0.000 (0.0-0.012) X10*3/uL Nucleated RBC % (auto) 0.0 (0.0-0.2) /100WBC Sodium 141 (135-145) mmol/L Potassium 4.1 (3.3-5.1) mmol/L Chloride 106 (96-108) mmol/L Carbon Dioxide 26 (22-29) mmol/L Anion Gap 13 (12-20) BUN 17 H (9-16) mg/dL Creatinine 0.80 (0.5-1.4) mg/dL Estim Creat Clear Calc 68.7 Estimated GFR > 60 Random Glucose 109 (60-115) mg/dL Calcium 9.7 D (8.4-10.2) mg/dL Total Bilirubin 0.7 (0.0-1.0) mg/dL Direct Bilirubin 0.2 (0.0-0.5) mg/dL AST 18 (5-31) U/L ALT 16 (0-31) U/L Alkaline Phosphatase 80 (39-117) U/L Total Protein 7.5 (6.5-8.0) g/dL Albumin 4.6 (3.5-5.0) g/dL Lipase 34 (8-78) U/L Urine Color Yellow Urine Appearance Cloudy Urine pH 6.5 (5.0-9.0) Ur Specific Lucien 1.020 (1.005-1.025) Urine Protein Negative (Neg-Trace) mg/dL Urine Glucose (UA) Negative (Negative) mg/dL Urine Ketones Negative (Negative) mg/dL Urine Blood Negative (Negative) Urine Nitrite Negative (Negative) Ur Leukocyte Esterase Large (3+) H (Negative) Core Measures AMI core measures followed: Yes Measure exclusions: not indicated Discharge Plan Discharge Clinical Impression: Viral illness, Nausea & vomiting Patient Disposition: Home, Self-Care Instructions: Acute Nausea and Vomiting (ED), Viral Syndrome (ED) Additional Instructions: Take your medications as prescribed. If you were prescribed antibiotics today, it is important that you take your medication to their entirety, do not skip any doses, do not finish them early. Follow-up with your primary care provider this week. Return to the emergency department with new or worsening symptoms. Such as fevers, chills, chest pain, shortness of breath, nausea, vomiting, dizziness, headache, vision changes, lethargy In case of emergency call 911 Drink plenty of fluids. Fab has been sent to her pharmacy for nausea and vomiting. Prescriptions: New ondansetron 4 mg tablet,disintegrating 4 mg PO Q6H PRN (Reason: nausea and vomiting) Qty: 14 0RF No Action sumatriptan succinate 25 mg tablet 25 mg PO Q2-4H PRN Rx Instructions: do not exceed 8 doses per 24 hrs bisacodyl [Dulcolax (bisacodyl)] 5 mg tablet,delayed release (DR/EC) 10 mg PO ONCE 1 Days Qty: 2 0RF Rx Instructions: take 2 tabs at noon the day before your colonoscopy polyethylene glycol 3350 [Miralax] 17 gram/dose powder 238 g PO ONCE Qty: 238 0RF Rx Instructions: As directed by gastroenterology department at [facility] Referrals: Viridiana Vance MD [Primary Care Provider] - 2 days Stand Alone Forms: Work/School Release
[2022-10-31 10:38] LABS: MANUAL DIFF FLAG NO
[2022-10-31 10:39] LABS: Basophils Percent Auto 0.4 % (0-2); Eosinophils Percent Auto 0.2 % (0-4); Hematocrit 39.4 % (37.0-47.0); Hemoglobin 12.8 g/dl (12.0-16.0); Imm Gran Abs Auto 0.02 X10*3/uL (0.00-0.03); Imm Gran Pct Auto 0.2 % (0.0-0.4); Lymphocytes Absolute Auto 1.7 X10*3/uL (1.2-4.9); Mean Corpuscular HGB Conc 32.5 g/dl (31.0-35.0); Mean Corpuscular Hemoglobin 28.1 pg (27.0-33.0); Mean Corpuscular Volume 86.6 fL (80.0-98.0); Mean Platelet Volume 10.5 fL (9.4-12.3); Monocytes Absolute Auto 0.5 X10*3/uL (0.1-1.2); Monocytes Percent Auto 4.5 % (2-11); Neutrophils Absolute Auto 8.3 x10*3/uL (2.0-8.3); Neutrophils Percent Auto 78.7 % (45-73); Platelet Count 274 X10*3/uL (160-400); Red Blood Count 4.55 X10*6/uL (4.20-5.50); Red Cell Distribution Width 13.1 % (11.0-16.0); White Blood Count 10.5 X10*3/uL (4.8-10.8)
[2022-10-31 11:01] LABS: Alanine Aminotransferase 16 U/L (0-31); Albumin Level 4.6 g/dL (3.5-5.0); Alkaline Phosphatase 80 U/L (39-117); Anion Gap 13 (12-20); Aspartate Amino Transferase 18 U/L (5-31); Bilirubin Direct 0.2 mg/dL (0.0-0.5); Bilirubin Total 0.7 mg/dL (0.0-1.0); Blood Urea Nitrogen 17 mg/dL (9-16); Calcium 9.7 mg/dL (8.4-10.2); Carbon Dioxide 26 mmol/L (22-29); Chloride 106 mmol/L (96-108); Creatinine Clr Calc Pharmacy 68.7; Estimated Glomerular Filt Rate > 60; Glucose Random 109 mg/dL (60-115); Lipase 34 U/L (8-78); Potassium 4.1 mmol/L (3.3-5.1); Sodium 141 mmol/L (135-145); Total Protein 7.5 g/dL (6.5-8.0)
[2022-10-31 11:20] LABS: Appearance Urine Cloudy; Color Urine Yellow; Glucose Urine UA Negative (Negative); Leukocyte Esterase Urine Large (3+) (Negative); Nitrite Urine Negative (Negative); PH 6.5 (5.0-9.0); UMIC TRIGGER UACC YES; Urine Blood Negative (Negative); Urine Ketones Negative (Negative); Urine Protein Negative (Neg-Trace)
[2022-10-31 11:22] LABS: Bacteria Urine 1+ (None Seen); Hyaline Casts Urine 0-2 /LPF (0-2); RBC Urine 0-2 /HPF (0-2); UACC Culture Trigger YES
[2022-10-31 11:57] LABS: COVID-19 Test Negative (Negative); IDNOW Serial# 55D5AD1C; IDNOW Serial# BCCEAD1C; Influenza A Negative (Negative); Influenza B2 Negative (Negative)
== END 2022-10-31 11:43 | disposition home or self-care (01) ==
PROVIDERS: Physician Assistant; Emergency Provider Emergency Medicine; PCP Internal Medicine
DX: R11.10 Vomiting, unspecified (principal); R10.9 Unspecified abdominal pain; B34.9 Viral infection, unspecified; Z20.822 Contact with and (suspected) exposure to COVID-19
CPT/HCPCS: 36415; 80048; 80076; 81001; 83690; 85025; 87086; 87502; 87635; 99283; 99284

== ENCOUNTER 2023-01-19 10:35 | Outpatient (REF) | payer OTHER, SELFPAY ==
[2023-01-20 09:38] LABS: CT PCR NOT DETECTED (Not Detect.); NG PCR NOT DETECTED (Not Detect.)
[2023-01-20 12:07] LABS: BV Int Neg Control Negative (Negative); BV Int Pos Control Positive (Positive)
== END 2023-01-19 10:36 | disposition home or self-care (01) ==
LOC: HO.LNP 10:35
PROVIDERS: Visit Provider Advanced Practice Midwife
DX: O34.40 Maternal care for other abnormalities of cervix, unspecified trimester (principal); O26.899 Other specified pregnancy related conditions, unspecified trimester; G43.909 Migraine, unspecified, not intractable, without status migrainosus; N92.0 Excessive and frequent menstruation with regular cycle; N94.6 Dysmenorrhea, unspecified; Z98.890 Other specified postprocedural states; Z86.73 Personal history of transient ischemic attack (TIA), and cerebral infarction without residual deficits; Z80.3 Family history of malignant neoplasm of breast
CPT/HCPCS: 0353U; 87480; 87510; 87660

== ENCOUNTER 2023-01-19 10:35 | Outpatient (AMB) | payer OTHER, SELFPAY ==
--- NOTE | 2023-01-19 11:11 | A.OFFVIS_ITS ---
Intake Vital Signs 01/19/23 11:12 Height 5 ft 2 in Weight 135 lb BMI 24.7 BP 120/80 Blood Pressure Location Lt brachial Position Sitting Intake Visit Reasons: Annual Intake Note: pelvic and back pain before her menstrual Information Interpreted: non-clinical & clinical Allergies No Known Allergies [No Known Allergies*] Allergy (Verified 01/19/23 11:16) Medication List - Last Reconciled 01/19/23 by Angela Romero CNM ondansetron 4 mg PO Q6H PRN polyethylene glycol 3350 (Miralax) 238 grams PO ONCE sumatriptan succinate 25 mg PO Q2-4H PRN Is last menstrual period known: Yes Last menstrual period: 12/20/22 Post menopausal: Yes Patient : No HPI Annual HPI Details Patient is here for an annual exam her periods have been getting a lot more uncomfortable and much more crampy and heavier. And in addition the week before she gets her. She is getting a lot more pain on 1 side or the other usually the left side. She has an appointment coming up for mammogram but she is not sure when it is. She also has a strong family his history of cancers her father has prostate cancer and is doing well her sister just got diagnosed very recently with breast cancer and just finished 3 weeks of chemo and is going to have the lump in her breast removed she also had something in her arm but that shrank with the chemo. She is going to need more chemo after the surgery as well. She also had another family relative that had some cancer she is not aware of any colon c ancers. Her sister just got the genetic test results this week and says that it is not genetic She has a history of abnormal Pap smears and had a LEEP in 2007 or . Her Pap since of been normal her last Pap was negative in 2021 and a previous negative Pap was in 2019. [facility] Medical History (Updated 01/19/23 @ 12:11 by Angela Romero CNM) Dysmenorrhea Heavy menstrual bleeding History of pre-eclampsia History of stroke Hx of abnormal cervical Pap smear Hx of LEEP (loop electrosurgical excision procedure) of cervix complicating Migraine Neurocysticercosis Surgical History History of colposcopy Family History (Updated 01/19/23 @ 11:20 by SMA Marjan) Sister Breast cancer in female Social History Housing: House Alcohol intake: current Alcohol intake frequency: other Alcohol type: beer and wine Patient Tobacco Use Status: Never used Tobacco e-Cigarette/Vaping Use: Never Used Current occupational status: unemployed Cognitive needs: No Hearing needs: No Vision needs: No Female Reproductive History Menstrual Age of Menarche: 12 Duration of menses: 6-7 days Date of last menstrual period: 12/20/22 control method: none and permanent sterilization Total pregnancies: 3 Number of Living Children: 2 Ab spontaneous: 1 Date of last pap smear: 01/13/22 (negative) History of abnormal pap smear: No History of STI: No Physical Exam Vital Signs: Last Vital Signs BP 120/80 01/19/23 11:12 BMI result Body Mass Index 24.7 Const General: healthy appearing, comfortable, no acute distress, well developed and alert Nutritional Appearance: average body habitus Orientation/consciousness: patient oriented x3 Limitations: no limitations HEENT Head: Yes normocephalic Neck Neck: Yes normal visual inspection Chest Chest palpation & inspection: normal inspection of the chest Breast/axilla inspection: normal inspection of the breasts and normal inspection of the axillae Breast/axilla palpation: normal palpation of the breasts and normal palpation of the axillae Resp Effort & Inspection: normal respiratory effort GI Inspection: Yes normal to inspection, No Abdominal wall edema and No distended Palpation (GI): Soft to palpation and nontender General: Yes bladder normal to palpation External Female Exam: normal external appearance and normal appearance of the ur ethra Speculum Exam - Vagina: normal appearance of the vagina, normal palpation and normal vaginal discharge Speculum Exam - Cervix: normal appearance of the cervix, normal palpation and nontender Bimanual exam- vagina & uterus: normal bimanual exam, normal palpation, uterine size normal, bladder normal to palpation, consistency normal, normal palpation, uterine mobility normal, uterine shape normal, No Cervical tenderness present, non-tender and no cervical motion tenderness Bimanual Exam- Adnexa, other: normal adnexae, no masses, normal and No adnexal tenderness Neuro General: patient oriented x3 Results Reviewed Results Reviewed: Name:?GrahamJessica Age/Sex: 46/F Attending: Angela Romero CNM : 1975 Submitted by: Angela Romero CNM Copies to: MR #: [id number] ? Status: DEP REF Collected: 01/11/22 Location: .LAB Received: 01/13/22 Interpretation Satisfactory for evaluation. Coccobacilli consistent with shift in vaginal la. Negative for intraepithelial lesion or malignancy. HPV mRNA E6/E7:? NOT DETECTED This assay detects E6/E7 viral messenger RNA (mRNA) from 14 high-risk HPV types (16, 18, 31, 33, 35, 39, 45, 51, 52, 56, 58, 59, 66, 68) HPV testing performed by [facility], [place], [place].? See reference laboratory pion of the EMR for entire report. Clinical Information LMP: 12/31/21 Previous PAP test: 11/13/2019, WNL Material Received ThinPrep-Cervical Electronically Signed By: YVETTE Jaimes (ASCP) ? 01/26/22 1432 The Pap Test is a? Assessment & Plan Assessment & Plan (1) Dysmenorrhea: Code(s): N94.6 - Dysmenorrhea, unspecified (2) Heavy menstrual bleeding: Code(s): N92.0 - Excessive and frequent menstruation with regular cycle (3) Migraine: Code(s): G43.909 - Migraine, unspecified, not intractable, without status migrainosus (4) History of stroke: Comment: when she had PP preeclampsia in 2019 Code(s): Z86.73 - Personal history of transient ischemic attack (TIA), and cerebral infarction without residual deficits (5) Hx of LEEP (loop electrosurgical excision procedure) of cervix complicating : Comment: 01/11/2022 Pap is negative with negative HPV. Code(s): O34.40 - Maternal care for other abnormalities of cervix, unspecified trimester; Z98.890 - Other specified postprocedural states (6) Well woman exam with routine gynecological exam: Code(s): Z01.419 - Encounter for gynecological examination (general) (routine) without abnormal findings (7) Family history of breast cancer in first degree relative: Code(s): Z80.3 - Family history of malignant neoplasm of breast Plan Patient is here for an annual exam her periods have been getting a lot more uncomfortable and much more crampy and heavier. And in addition the week before she gets her. She is getting a lot more pain on 1 side or the other usually the left side. She has an appointment coming up for mammogram but she is not sure when it is. She also has a strong family his history of cancers her father has prostate cancer and is doing well her sister just got diagnosed very recently with breast cancer and just finished 3 weeks of chemo and is going to have the lump in her breast removed she also had something in her arm but that shrank with the chemo. She is going to need more chemo after the surgery as well. She also had another family relative that had some cancer she is not aware of any colon cancers. Her sister just got the genetic test results this week and says that it is not genetic She has a history of abnormal Pap smears and had a LEEP in 2007 or 9. Her Pap since of been normal her last Pap was negative in 2021 and a previous negative Pap was in 2019. Discussed all these issues. Patient is going to double check on her mammogram make sure she gets it done. It is good that her sister's genetic testing was negative. Discussed the likelihood that she is having symptoms related to formation of a cyst after ovulation and that this can become more painful for women as they approach menopause and additionally periods can often become more crampy and nu as well I recommend a Mirena IU S to manage her symptoms but we will aim to get an ultrasound and while it may be tricky to schedule I asked her to try her best to aim to have it the week before she expects her periods so if there is a cyst there then we can see it when she is most symptomatic. We can review the ultrasound when she comes to place her Mirena IU S with her menses.. Risks of other procedures and benefits of trying this as an intervention were discussed as well as the relative risks of blood clots and other options. I did give her a brochure to read. Discussed why it might be a helpful intervention. Orders: Orders Bacterial Vaginosis Panel Today G43.909 - Migraine, unspecified, not intractable, without status migrainosus, N92.0 - Excessive and frequent menstruation with regular cycle, N94.6 - Dysmenorrhea, unspecified, O34.40 - Maternal care for other abnormalities of cervix, unspecified trimester, Z01.419 - Encounter for gynecological examination (general) (routine) without abnormal findings, Z80.3 - Family history of malignant neoplasm of breast, Z86.73 - Personal history of transient ischemic attack (TIA), and cerebral infarction without residual deficits, Z98.890 - Other specified postprocedural states CT NG by PCR Today G43.909 - Migraine, unspecified, not intractable, without status migrainosus, N92.0 - Excessive and frequent menstruation with regular cycle, N94.6 - Dysmenorrhea, unspecified, O34.40 - Maternal care for other abnormalities of cervix, unspecified trimester, Z01.419 - Encounter for gynecological examination (general) (routine) without abnormal findings, Z80.3 - Family history of malignant neoplasm of breast, Z86.73 - Personal history of transient ischemic attack (TIA), and cerebral infarction without residual deficits, Z98.890 - Other specified postprocedural states US pelvic and transvaginal Today G43.909 - Migraine, unspecified, not intractable, without status migrainosus, N92.0 - Excessive and frequent menstruation with regular cycle, N94.6 - Dysmenorrhea, unspecified, O34.40 - Maternal care for other abnormalities of cervix, unspecified trimester, Z01.419 - Encounter for gynecological examination (general) (routine) without abnormal findings, Z80.3 - Family history of malignant neoplasm of breast, Z86.73 - Personal history of transient ischemic attack (TIA), and cerebral infarction without residual deficits, Z98.890 - Other specified postprocedural states Coding Level of Care Code Est Pt Prev Care 40-64y(25285) Diagnoses Dysmenorrhea N94.6 Heavy menstrual bleeding N92.0 Migraine G43.909 History of stroke Z86.73 Hx of LEEP (loop electrosurgical excision procedure) of cervix complicating O34.40; Z98.890 Well woman exam with routine gynecological exam Z01.419 Family history of breast cancer in first degree relative Z80.3
[2023-01-19 11:12] VITALS: BP 120/80; BMI 24.7
== END 2023-01-19 12:13 | disposition home or self-care (01) ==
PROVIDERS: Visit Provider Advanced Practice Midwife
DX: Z01.419 Encounter for gynecological examination (general) (routine) without abnormal findings (principal); N94.6 Dysmenorrhea, unspecified; N92.0 Excessive and frequent menstruation with regular cycle; G43.909 Migraine, unspecified, not intractable, without status migrainosus; Z86.73 Personal history of transient ischemic attack (TIA), and cerebral infarction without residual deficits; O34.40 Maternal care for other abnormalities of cervix, unspecified trimester; Z98.890 Other specified postprocedural states; Z80.3 Family history of malignant neoplasm of breast
CPT/HCPCS: 99396

== ENCOUNTER 2023-02-09 11:14 | Outpatient (REF) | payer OTHER, SELFPAY ==
--- NOTE | ~2023-02-09 | US_ITS ---
EXAMINATION: US PELVIC AND TRANSVAGINAL CLINICAL INFORMATION: Menorrhagia. Dysmenorrhea. LMP 2-3 weeks ago. COMPARISON: CT abdomen/pelvis dated 01/04/2019. TECHNIQUE: Ultrasound of the pelvis is performed using both transabdominal and transvaginal transducers along with Doppler. Transvaginal imaging is performed due to inadequate visualization transabdominally. FINDINGS: UTERUS: The uterus is anteverted and measures 9 x 4.1 x 5.2 cm. The double wall endometrial thickness is 0.9 mm. The uterus is smooth in contour and has normal myometrial echogenicity. No visible fibroid. ADNEXA: Both ovaries are visualized. There is normal color flow to the adnexa. There is no ovarian torsion. There is no pelvic ascites or fluid collection. Right ovary measures 2.4 x 1.3 x 2.0 cm. Right ovarian volume of 3.2 mL. Left ovary measures 2.6 x 2.2 x 2.0 cm. Left ovarian volume of 7.7 mL. Thick-walled, slightly complex, left ovarian cyst with increased Doppler detectable vascular flow peripherally which could represent a corpus luteum. Small amount of pelvic free fluid. US/US pelvic and transvaginal IMPRESSION: 1. Sonographically unremarkable uterus and endometrium. 2. Probable left ovarian corpus luteum. 3. Small amount of pelvic free fluid.
== END 2023-02-09 11:15 | disposition home or self-care (01) ==
LOC: HO.US 11:14
PROVIDERS: PCP Internal Medicine; Visit Provider Advanced Practice Midwife
DX: Z01.419 Encounter for gynecological examination (general) (routine) without abnormal findings (principal); G43.909 Migraine, unspecified, not intractable, without status migrainosus; N92.0 Excessive and frequent menstruation with regular cycle; N94.6 Dysmenorrhea, unspecified; Z98.890 Other specified postprocedural states; Z86.73 Personal history of transient ischemic attack (TIA), and cerebral infarction without residual deficits; Z80.3 Family history of malignant neoplasm of breast
CPT/HCPCS: 76830; 76856

== ENCOUNTER 2023-02-13 09:34 | Outpatient (REF) | payer OTHER, SELFPAY ==
--- NOTE | ~2023-02-13 | MM_ITS ---
EXAMINATION: MM SCREENING DIGITAL BREAST TOMOSYNTHESIS, BILATERAL CLINICAL INFORMATION: Screening. Asymptomatic. COMPARISON: Mammography: 02/08/2022, 10/22/2017, 04/11/2016, 02/23/2015; targeted left breast ultrasound 05/24/2017 and 03/05/2015 TECHNIQUE: Digital breast tomosynthesis is performed in both the craniocaudal and mediolateral oblique views along with computer-aided detection (CAD). Synthesized 2D images are generated from the tomosynthesis. FINDINGS: There are scattered areas of fibroglandular density (ACR BI-RADS breast composition Category b). Intramammary lymph node again noted upper outer left breast. This is unchanged. There are no suspicious masses, suspicious grouped calcifications, or areas of architectural distortion in either breast. The parenchymal pattern is stable from prior exams. MM/MM tomosynthesis screening BI IMPRESSION: No mammographic evidence of malignancy. Stable benign findings. ASSESSMENT: BI-RADS BI-RADS 2 - Benign Findings RECOMMENDATION: Routine annual mammography screening. 1 year F/U This examination should not preclude the clinical evaluation of a suspicious palpable abnormality. This patient's information was entered into a reminder system with a target due date for their next mammogram.
== END 2023-02-13 09:35 | disposition home or self-care (01) ==
LOC: HO.MAMMO 09:34
PROVIDERS: PCP Internal Medicine; Visit Provider Internal Medicine
DX: Z12.31 Encounter for screening mammogram for malignant neoplasm of breast (principal)
CPT/HCPCS: 77063; 77067

== ENCOUNTER → 2023-02-13 09:45 | Outpatient (BNV) | payer OTHER, SELFPAY | PROVIDERS: PCP Internal Medicine; Visit Provider Radiology Diagnostic Radiology | DX: Z12.31 Encounter for screening mammogram for malignant neoplasm of breast (principal) | CPT/HCPCS: 77063; 77067 ==

== ENCOUNTER 2023-03-30 09:03 | Outpatient (AMB) | payer OTHER, SELFPAY ==
[2023-03-30 09:16] VITALS: BP 132/74; BMI 24.5
--- NOTE | 2023-03-30 09:16 | A.OFFVIS_ITS ---
Intake Vital Signs 03/30/23 09:16 Height 5 ft 2 in Weight 134 lb BMI 24.5 BP 132/74 Intake Visit Reasons: Ultrasound follow up Air Sampler Required: No Allergies No Known Allergies [No Known Allergies*] Allergy (Verified 03/30/23 09:16) Medication List - Last Reconciled 03/30/23 by Angela Romero CNM sumatriptan succinate 25 mg PO Q2-4H PRN Is last menstrual period known: Yes Last menstrual period: 03/20/23 Post menopausal: No HPI Ultrasound follow up HPI Details Patient is here for review of her ultrasound she had it done at the end of December and she says that she had it done the week before. When her symptoms are most prominent usually she typically has been getting pain on 1 side or the other typically on left side, and she also has been noticing very heavy crampy periods. 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 She is concerned about cancer because of her strong family history with her father with prostate cancer and sister with breast cancer and other relatives as well. She has a history of CECILIO 3 and a LEEP many years ago and her last Pap smears were negative and normal. We reviewed the ultrasound and is finding of a corpus luteum she also had her mammogram which shows a stable inflammatory lymph node on 1 side and the recommendation is for to watch for herself and to get yearly mammograms no follow-up was recommended for the ultrasound finding of the corpus luteum cyst [facility] Medical History Dysmenorrhea Heavy menstrual bleeding Migraine Hx of LEEP (loop electrosurgical excision procedure) of cervix complicating Hx of abnormal cervical Pap smear Neurocysticercosis History of pre-eclampsia History of stroke Surgical History History of colposcopy Family History Sister Breast cancer in female Social History Housing: House Alcohol intake: current Alcohol intake frequency: other Alcohol type: beer and wine Patient Tobacco Use Status: Never used Tobacco e-Cigarette/Vaping Use: Never Used Current occupational status: unemployed Cognitive needs: No Hearing needs: No Vision needs: No Female Reproductive History Menstrual Age of Menarche: 12 Duration of menses: 6-7 days Date of last menstrual period: 03/20/23 control method: none Date of last pap smear: 01/13/22 (negative) History of abnormal pap smear: Yes Physical Exam Vital Signs: Last Vital Signs BP 132/74 03/30/23 09:16 BMI result Body Mass Index 24.5 Results Reviewed Results Reviewed: [address] [address] Ultrasound Report Signed Patient: Jessica Graham MR#: [id number] : 1975 Acct:[id number] Age/Sex: 47 / F ADM Date: 02/09/23 Loc: HO.US Attending Dr: Angela Romero CNM Ordering Physician: Angela Romero CNM Date of Service: 02/09/23 Procedure(s): US pelvic and transvaginal Accession Number(s): [id number] cc: Viridiana Vance MD; Angela Romero CNM~ EXAMINATION: US PELVIC AND TRANSVAGINAL CLINICAL INFORMATION: Menorrhagia. Dysmenorrhea. LMP 2-3 weeks ago. COMPARISON: CT abdomen/pelvis dated 01/04/2019. TECHNIQUE: Ultrasound of the pelvis is performed using both transabdominal and transvaginal transducers along with Doppler. Transvaginal imaging is performed due to inadequate visualization transabdominally. FINDINGS: UTERUS: The uterus is anteverted and measures 9 x 4.1 x 5.2 cm. The double wall endometrial thickness is 0.9 mm. The uterus is smooth in contour and has normal myometrial echogenicity. No visible fibroid. ADNEXA: Both ovaries are visualized. There is normal color flow to the adnexa. There is no ovarian torsion. There is no pelvic ascites or fluid collection. Right ovary measures 2.4 x 1.3 x 2.0 cm. Right ovarian volume of 3.2 mL. Left ovary measures 2.6 x 2.2 x 2.0 cm. Left ovarian volume of 7.7 mL. Thick-walled, slightly complex, left ovarian cyst with increased Doppler detectable vascular flow peripherally which could represent a corpus luteum. Small amount of pelvic free fluid. US/US pelvic and transvaginal IMPRESSION: 1. Sonographically unremarkable uterus and endometrium. 2. Probable left ovarian corpus luteum. 3. Small amount of pelvic free fluid. Assessment & Plan Assessment & Plan (1) Family history of breast cancer in first degree relative: Code(s): Z80.3 - Family history of malignant neoplasm of breast (2) Hx of LEEP (loop electrosurgical excision procedure) of cervix complicating : Comment: 01/11/2022 Pap is negative with negative HPV., per discussion with patient secondary to concern consider repeating Pap in 2023. Code(s): O34.40 - Maternal care for other abnormalities of cervix, unspecified trimester; Z98.890 - Other specified postprocedural states (3) Dysmenorrhea: Code(s): N94.6 - Dysmenorrhea, unspecified Plan Patient is here for review of her ultrasound she had it done at the end of December and she says that she had it done the week before. When her symptoms are most prominent usually she typically has been getting pain on 1 side or the other typically on left side, and she also has been noticing very heavy crampy periods. 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 She is concerned about cancer because of her strong family history with her father with prostate cancer and sister with breast cancer and other relatives as well. She has a history of CECILIO 3 and a LEEP many years ago and her last Pap smears were negative and normal. We reviewed the ultrasound and is finding of a corpus luteum she also had her mammogram which shows a stable inflammatory lymph node on 1 side and the recommendation is for to watch for herself and to get yearly mammograms no follow-up was recommended for the ultrasound finding of the corpus luteum cyst. I reviewed the ultrasound finding with her and I reviewed what happens in the menstrual cycle with formation of corpus luteum cyst. Reviewed her excellent se lf-care and reviewed things to watch for in terms of any changes in her health that would indicate something needed to be evaluated further both in terms of her breasts or GI symptoms or any symptoms that could be related to ovarian changes. Menopause will be coming soon and she knows to expect that as well. We will see her in 1 year she would feel better having her Pap smear repeated next year so we will plan on that.. Coding Level of Care Code Est Pt Level 3 (41712) Diagnoses Family history of breast cancer in first degree relative Z80.3 Hx of LEEP (loop electrosurgical excision procedure) of cervix complicating O34.40; Z98.890 Dysmenorrhea N94.6
== END 2023-03-30 09:40 | disposition home or self-care (01) ==
LOC: HO.HWS 09:03
PROVIDERS: PCP Internal Medicine; Visit Provider Advanced Practice Midwife
DX: Z80.3 Family history of malignant neoplasm of breast (principal); O34.40 Maternal care for other abnormalities of cervix, unspecified trimester; Z98.890 Other specified postprocedural states; N94.6 Dysmenorrhea, unspecified
CPT/HCPCS: 99213

== ENCOUNTER → 2023-03-30 09:03 | Outpatient (BNVA) | payer OTHER, SELFPAY | PROVIDERS: PCP Internal Medicine; Visit Provider Advanced Practice Midwife | DX: N94.6 Dysmenorrhea, unspecified (principal); Z80.3 Family history of malignant neoplasm of breast; Z98.890 Other specified postprocedural states | CPT/HCPCS: 99212 ==

== ENCOUNTER 2023-06-12 12:06 | Day surgery (SDC) | payer OTHER, SELFPAY ==
--- NOTE | 2023-06-09 09:36 | HO.ANESPROP2 ---
Documented by User: Lindsay Ceja NP 06/09/23 09:38 HPI - Anesthesia Eval Consult details Narrative: 47yo F for Colonoscopy CVA r/t post pre-eclampsia 2019 [facility] Active Problems Active Problems: All Active Problems (Updated 03/30/23 @ 09:48 by Angela Romero CNM) Family history of breast cancer in first degree relative (Acute) Well woman exam with routine gynecological exam (Acute) History of stroke (Acute) Hx of LEEP (loop electrosurgical excision procedure) of cervix complicating (Acute) Dysmenorrhea (Acute) Heavy menstrual bleeding (Acute) Migraine (Acute) Past Medical History Medical History (Updated 06/12/23 @ 13:13 by Gilma Eason RN) Dysmenorrhea Heavy menstrual bleeding Migraine Hx of LEEP (loop electrosurgical excision procedure) of cervix complicating Hx of abnormal cervical Pap smear Neurocysticercosis History of pre-eclampsia History of stroke Family History Family History Sister Breast cancer in female Surgical History Surgical History (Updated 06/12/23 @ 13:26 by Gali Carpenter MD) H/O tubal ligation History of colposcopy Social History Social History Housing: House Alcohol intake: current Alcohol intake frequency: other Alcohol type: beer and wine Patient Tobacco Use Status: Never used Tobacco e-Cigarette/Vaping Use: Never Used Advance Directives: No Advance Directives Information Provided: Yes Current occupational status: unemployed Cognitive needs: No Hearing needs: No Vision needs: No Meds Allergies Allergy/AdvReac Type Severity Reaction Status Date / Time No Known Allergies Allergy Verified 03/30/23 09:16 [No Known Allergies*] Home Medications Medication Instructions Recorded Confirmed Last Taken Type sumatriptan succinate 25 mg tablet 25 mg PO Q2-4H PRN 01/11/22 03/30/23 Unknown History Exam Pertinent Lab Results Pertinent Lab Results: Laboratory Tests 10/31/22 10:34 WBC 10.5 Hgb 12.8 Hct 39.4 Plt Count 274 Sodium 141 Potassium 4.1 Chloride 106 Carbon Dioxide 26 BUN 17 H Creatinine 0.80 Assessment and Plan Assessment Anesthesia Assessment: Chart Reviewed Documented by User: Gali Carpenter MD 06/12/23 13:27 HPI - Anesthesia Eval Consult details Narrative: 47yo F for Colonoscopy CVA r/t post eclampsia 2019-patient denies.No slurring of speech. No weakness of extremities. No facial droop. Patient inuced for pre-eclampsia and went home post vaginal deliver with mild headache. Had some symptoms at home(swelling left side of neck and came back to hospital- Told she had strep throat and sent home. Returned to [facility] with symptoms of worsened headache and visual symptoms and was admitted and treated for pre-eclampsia. CT brain negative for hemorrhage or infarction PMFSH Active Problems Active Problems: All Active Problems (Updated 06/12/23 @ 12:59 by Gali Carpenter MD) Family history of breast cancer in first degree relative (Acute) Well woman exam with routine gynecological exam (Acute) History of stroke (Acute)- patient denies Hx of LEEP (loop electrosurgical excision procedure) of cervix complicating (Acute) Dysmenorrhea (Acute) Heavy menstrual bleeding (Acute) Migraine (Acute) Past Medical History Medical History (Updated 06/12/23 @ 13:13 by Gilma Eason RN) Dysmenorrhea Heavy menstrual bleeding Migraine Hx of LEEP (loop electrosurgical excision procedure) of cervix complicating Hx of abnormal cervical Pap smear Neurocysticercosis History of pre-eclampsia History of stroke Family History Family History Sister Breast cancer in female Family history of problems with anesthesia: No Surgical History Surgical History (Updated 06/12/23 @ 13:26 by Gali Carpenter MD) H/O tubal ligation History of colposcopy History of Problems with Anesthesia: No Social History Social History Housing: House Alcohol intake: current Alcohol intake frequency: other Alcohol type: beer and wine Patient Tobacco Use Status: Never used Tobacco e-Cigarette/Vaping Use: Never Used Advance Directives: No Advance Directives Information Provided: Yes Current occupational status: unemployed Cognitive needs: No Hearing needs: No Vision needs: No Meds Allergies Allergy/AdvReac Type Severity Reaction Status Date / Time No Known Allergies Allergy Verified 03/30/23 09:16 [No Known Allergies*] Home Medications Medication Instructions Recorded Confirmed Last Taken Type sumatriptan succinate 25 mg tablet 25 mg PO Q2-4H PRN 01/11/22 03/30/23 Unknown History Exam Height,Weight and Vital Signs: Height 5 ft 2 in Weight 58.967 kg Vital Signs Temp Pulse Resp BP Pulse Ox O2 Del Method 06/12/23 13:03 97.9 F 72 18 146/86 H 99 Room Air Pertinent Lab Results Pertinent Lab Results: Laboratory Tests 10/31/22 10:34 WBC 10.5 Hgb 12.8 Hct 39.4 Plt Count 274 Sodium 141 Potassium 4.1 Chloride 106 Carbon Dioxide 26 BUN 17 H Creatinine 0.80 Lab Results 06/12/23 Range/Units 12:30 Urine Test NEGATIVE (NEGATIVE) Airway Mallampati Class: III TM Dist: >3cm Neck ROM: Full Loose/Missing/Broken Teeth: Yes (Caps intact. Some broken teeth. Some missing teeth- top right back) Heart: RRR Lungs: CTAB Assessment and Plan Assessment Anesthesia Assessment: Anesthesia Plan Discussed Final Anesthetic Review Family History of Problems with Anesthesia: No History of Problems with Anesthesia: No NPO: Yes (Finished drinking prep @ 9am) ASA Class: III Final Preanesthetic Review: No Changes in Pt Med Stat, Meds/Allgs Chart Reviewed, Consent Obtained/Reviewed and Anes Risks/Benef Reviewed Patient Risk: Intermediate Procedure Risk: Low Assessment/Block/Sedation in SS: Assess/Block/Sedation-SS Anesthetic Plan Anesthetic Plan: TIVA Disposition: Standard PACU
[2023-06-12 12:59] LABS: UPreg QC Valid YES; Urine Pregnancy NEGATIVE (NEGATIVE)
[2023-06-12 13:03] VITALS: BP 146/86; PULSE 72; RESP 18; TEMP 36.6; O2SAT 99; BMI 23.8
--- NOTE | 2023-06-12 13:04 | P.HPSUR_ITS ---
Pre-Procedural Eval Section A Date of Service: 06/12/23 The patient is an INPATIENT: No The History & Physical has been completed within 30 days and I have reviewed it.: No Section B Chief Complaint: Colon cancer screening Relevant Family History (Specify if Yes): No Relevant Social History: None Present Medications: see Short Stay Collaborative assessment Medical History: Significant History (Heavy menstrual bleeding History of pre- eclampsia History of stroke Hx of abnormal cervical Pap smear Hx of LEEP (loop electrosurgical excision procedure) of cervix complicating Migraine Neurocysticercosis) History of Previous Operations: Relevant previous surgery/procedure and date(s) (History of colposcopy) Allergies: Allergies Allergy/AdvReac Type Severity Reaction Status Date / Time No Known Allergies Allergy Verified 03/30/23 09:16 [No Known Allergies*] Review of Systems Sugical H&P ROS: Negative: Constitution, Cardiovascular, Respiratory and Gastrointestinal Exam Surgical H&P Exam: Normal: Heart, Normal: Lungs, Normal: Extremities and Normal: Abdomen Plan Diagnosis/Plan: Unchanged I have reviewed the history and physical and performed a pertinent physical examination on my patient. No changes have occurred unless specified. Time Spent With Patient Time: Total time managing care of this patient today ____ minutes.
[2023-06-12] MEDS: ondansetron HCL 4 MG/2 ML VIAL IVPUSH (13:10)
[2023-06-12 13:14] VITALS: BMI 23.8
--- NOTE | 2023-06-12 13:15 | P.OP_ITS ---
Operative Note Operative Note Date of Service: 06/12/23 Narrative: COLONOSCOPY TILL CECUM WITH SNARE POLYPECTOMY, SUBMUCOSAL INJECTION AND HEMOCLIP PLACEMENT Pre-op diagnosis: Colon cancer screening (1st colonoscopy) Post-op diagnosis:? Colon polyp, diverticulosis, hemorrhoids Endoscopist:? Adalgisa Stubbs MD Anesthesia:?MAC Consent: Indications for the procedure and potential complications of bleeding, perforation, reaction to medications and missed diagnosis were discussed with the patient and informed consent was obtained. Instrument: Olympus PCF H 190 L variable stiffness pediatric colonoscope Monitoring: Vital signs and clinical assessment, intermittent blood pressure monitoring, continuous EKG monitoring, Pulse oximetry and Carbon Dioxide monitoring were done throughout the procedure. Please see anesthesia flowsheet. Colon withdrawl time was 16 minutes. Procedure: The patient was placed in the left lateral decubitis position and pre-procedure medications were administered. After a digital rectal examination of the ano-rectum, the video colonoscope was inserted into the rectum and advanced through the colon to the cecum. The colonoscope was slowly withdrawn in a retrograde panoramic fashion and the colon mucosa was carefully examined including a retroflexed view of the rectum. Findings and interventions are described below. Procedure Difficulty: Without difficulty Findings: Terminal Ileum: Not evaluated Cecum: Normal Ascending Colon: A 12-15 mm flat polyp in the proximal AC (just distal to ICV). Polyp was raised with 3 cc of Eleview and removed with a hot snare. Polypectomy site was closed with 1 hemoclip. Transverse Colon: Normal Descending Colon: Normal Sigmoid Colon: Moderate diverticulosis Rectum: Normal Ano-rectum: Small internal hemorrhoids Colon preparation: Good after some irrigation Brilliant Bowel Preparation Scale Right colon; 3 Transverse colon: 3 Left colon; 3 (0 = Unprepared colon segment with mucosa not seen due to solid stool that cannot be cleared. 1 = Portion of mucosa of the colon segment seen, but other areas of the colon segment not well seen due to staining, residual stool and/or opaque liquid. 2 = Minor amount of residual staining, small fragments of stool and/or opaque liquid, but mucosa of colon segment seen well. 3 = Entire mucosa of colon segment seen well with no residual staining, small fragments of stool or opaque liquid) Impression and Post Procedure Diagnosis: Colonoscopy Findings: One medium sized polyp removed Moderate diverticulosis seen in the sigmoid colon Small hemorrhoids on retroflexed exam. Plan: Await pathology results Patient has an appointment on 06/27/23 in the GI Clinic with India Carpenter FNP- [facility]. Repeat Colonoscopy interval based on path results - in 3 years if polyp is adenomatous and 10 years if polyps are hyperplastic. Above findings were reviewed with the patient and colon polyps and diverticulosis handouts were given in the discharge area
[2023-06-12] MEDS: Lactated Ringers 1,000 ML 100 ML IVCONT (14:17)
[2023-06-12 15:00] VITALS: BP 93/45; PULSE 92; RESP 12; TEMP 36.4; O2SAT 97
[2023-06-12 15:15] VITALS: BP 110/69; PULSE 73; RESP 14; O2SAT 98
[2023-06-12 15:30] VITALS: BP 113/68; PULSE 74; RESP 14; TEMP 36.6; O2SAT 100
[2023-06-12 16:27] VITALS: BP 123/76; PULSE 74; RESP 14; TEMP 36.6; O2SAT 100
== END 2023-06-12 16:32 | disposition home or self-care (01) ==
PROVIDERS: Nurse Practitioner; PCP Internal Medicine; Visit Provider Internal Medicine Gastroenterology
PROC: 0DJD8ZZ Inspection of Lower Intestinal Tract, Via Natural or Artificial Opening Endoscopic (ICD-10-PCS; CPT 45378; principal; 2023-06-12 13:40)
DX: Z12.11 Encounter for screening for malignant neoplasm of colon (principal); D12.2 Benign neoplasm of ascending colon; K57.30 Diverticulosis of large intestine without perforation or abscess without bleeding; K64.8 Other hemorrhoids; Z86.73 Personal history of transient ischemic attack (TIA), and cerebral infarction without residual deficits
CPT/HCPCS: 45385; 45381; 81025; 88305; J2405; J2704

== ENCOUNTER → 2023-06-12 12:06 | Outpatient (BNV) | payer OTHER, SELFPAY | PROVIDERS: PCP Internal Medicine; Visit Provider Internal Medicine Gastroenterology | DX: Z12.11 Encounter for screening for malignant neoplasm of colon (principal); K63.5 Polyp of colon; K57.30 Diverticulosis of large intestine without perforation or abscess without bleeding; K64.8 Other hemorrhoids | CPT/HCPCS: 45381; 45385 ==

== ENCOUNTER 2023-06-27 08:53 | Outpatient (AMB) | payer OTHER, SELFPAY ==
--- NOTE | 2023-06-27 09:02 | A.OFFVIS_ITS ---
Intake Vital Signs 06/27/23 09:05 Height 5 ft 2 in Weight 131 lb 13.383 oz BMI 24.1 BP 122/74 Blood Pressure Location Rt brachial Position Sitting Pulse 72 Intake Visit Reasons: S/P [place] screening; Dr. Stubbs Intake Note: Patient returns to office in postoperative visit s/p colonoscopy. CC: Pt underwent colonoscopy with Dr. Stubbs on 06/12/23. Patient reports doing well and denies having any GI symptoms or concerns today. Radiation Oncology Nurse Required: No Accompanied by: Self / Same As Patient Allergies No Known Allergies [No Known Allergies*] Allergy (Verified 06/27/23 09:06) HPI S/P [place] screening; Dr. Stubbs HPI Details LAST VISIT Colon cancer screening Patient denies any GI, cardiac or respiratory symptoms.? Denies any issues with anesthesia in the past.? Denies any history of sleep apnea.? No history infectious diseases in the past or present.? Not on any anticoagulation therapy.? No family or personal history of colon cancer or polyps.? Patient denies melena, hematochezia, unintentional weight loss or ribbon like stools.? Discussed at length the pre-procedure,? prep, diet & medications as well as what to expect prior, during and after the procedure.?? Stressed the importance of good bowel prep. ?Recommended the use of Vaseline or Calmoseptine OTC & baby wipes with bowel movements to promote comfort.? ?Patient verbalizes understanding and agrees to plan of care.? She was given the opportunity to ask questions and all questions answered.? We will see her after the procedure.? Plan Medications New bisacodyl (Dulcolax (bisacodyl)) take 2 tabs at noon the day before your colonoscopy 10 mg (2 x 5 mg) PO ONCE 1 day 2 tabs 0RF Z12.11 - Encounter for screening for malignant neoplasm of colon polyethylene glycol 3350 (Miralax) As directed by gastroenterology department at [facility] 238 grams PO ONCE 238 grams 0RF Z12.11 - Encounter for screening for malignant neoplasm of colon COLONOSCOPY Findings: Terminal Ileum: Not evaluated Cecum: Normal Ascending Colon: A 12-15 mm flat polyp in the proximal AC (just distal to ICV). Polyp was raised with 3 cc of [place] and removed with a hot snare. Polypectomy site was closed with 1 hemoclip. Transverse Colon: Normal Descending Colon: Normal Sigmoid Colon: Moderate diverticulosis Rectum: Normal Ano-rectum: Small internal hemorrhoids Colon preparation: Good after some irrigation [place] Bowel Preparation Scale Right colon; 3 Transverse colon: 3 Left colon; 3 (0 = Unprepared colon segment with mucos a not seen due to solid stool that c annot be cleared. 1 = Portion of mucosa of the colon segme nt seen, but other areas of the colon segment not well seen due to staining, residual stool and/or opaque liquid. 2 = Minor amount of residual staining, s mall fragments of stool and/or opaque liquid, but mucosa of colon segment seen well. 3 = Entire mucosa of colon segment seen well with no residual staining, small fragments of stool or opaque liquid) Impression and Post Procedure Diagnosis: Colonoscopy Findings: One medium sized polyp removed Moderate diverticulosis seen in the sigmoid colon Small hemorrhoids on retroflexed exam. Plan: Repeat Colonoscopy interval based on path results - in 3 years if polyp is adenomatous and 10 years if polyps are hyperplastic. PATHOLOGY RESULTS Diagnosis Colon, ascending, polyp: Consistent with sessile serrated lesion/polyp without dysplasia TODAY'S VISIT Patient is here today for follow-up and to discuss colonoscopy results. Patient denies any ill effects from the prep, anesthesia or procedure itself. Patient reports that she had no bowel movements for 3 days after the procedure. Now patient is going, however she occasionally will have constipation. Patient states that when she is trying to have a bowel movement when she has urge to go sometimes she has to push in order to move her bowels. Patient denies melena, hematochezia, unintentional weight loss or ribbon like stools. Patient denies dyspepsia, dysphagia or odynophagia. Patient denies any other GI concerning symptoms. [facility] Medical History (Updated 06/27/23 @ 13:11 by India Carpenter, FRUIT TRIMMER-) Diverticulosis Dysmenorrhea Heavy menstrual bleeding Migraine Hx of LEEP (loop electrosurgical excision procedure) of cervix complicating Hx of abnormal cervical Pap smear Neurocysticercosis History of pre-eclampsia History of stroke Surgical History H/O tubal ligation History of colposcopy Family History Sister Breast cancer in female Social History Housing: House Alcohol intake: current Alcohol intake frequency: does not drink Alcohol type: beer and wine Patient Tobacco Use Status: Never used Tobacco e-Cigarette/Vaping Use: Never Used Current occupational status: unemployed Cognitive needs: No Hearing needs: No Vision needs: No Female Reproductive History Menstrual Age of Menarche: 12 Review of Systems Const Denies weight gain and Denies weight loss ENT Reports no additional complaints, Denies dysphagia and Denies odynophagia Card Reports no additional complaints Resp Reports no additional complaints GI Reports abdominal pain (cramping), Denies belching, Denies melena, Denies bloating, Denies change in bowel habits, Reports constipation, Denies dysphagia, Denies excessive flatus, Denies dyspepsia, Denies heartburn, Denies diarrhea, Denies loose stools, Denies nausea, Denies odynophagia and Denies vomiting Musc Reports no additional complaints Neuro Reports no additional complaints Psych Reports no additional complaints Endo Reports no additional complaints Physical Exam Vital Signs: Last Vital Signs Pulse 72 06/27/23 09:05 BP 122/74 06/27/23 09:05 BMI result Body Mass Index 24.1 Const General: healthy appearing, no acute distress and well developed Nutritional Appearance: well nourished Orientation/consciousness: patient oriented x3 Resp Effort & Inspection: normal respiratory effort, able to speak in complete sentences, no tracheal deviation and symmetric chest movement Auscultation: clear to auscultation bilaterally Cardio Rate: regular rate GI Inspection: Yes normal to inspection and No distended Palpation (GI): Soft to palpation, not firm, nontender and No hepatosplenomegaly present Auscultation: normal bowel sounds General: Yes no CVA tenderness Back/Spine/Pelvis Back: no CVA tenderness Skin General skin exam: elasticity normal, turgor normal and dry skin Neuro General: patient oriented x3 Psych Appearance: grossly normal Mental Status: mental status grossly normal Assessment & Plan Assessment & Plan (1) Sessile serrated polyp of colon: Code(s): D12.6 - Benign neoplasm of colon, unspecified (2) Status post colonoscopy: Code(s): Z98.890 - Other specified postprocedural states (3) Constipation: Code(s): K59.00 - Constipation, unspecified Qualifiers: Constipation type: slow transit constipation Qualified Code(s): K59.01 - Slow transit constipation (4) Diverticulosis: Code(s): K57.90 - Diverticulosis of intestine, part unspecified, without perforation or abscess without bleeding Plan Patient will return for colonoscopy in 3 years, sooner if clinically necessary. Patient reports constipation will send her script for MiraLax. Patient was encouraged to increase fluid intake and activity to promote better bowel motility. High-fiber diet discussed with patient list of food high in fiber given to patient. Patient can take [id number] probiotics. Patient will return in the office in 6 months, sooner on as needed basis. Patient is agreeable to this plan and verbalizes understanding of instructions. She was given the opportunity to ask questions and all questions answered. Thank you for allowing me to participate in her care Medications: New polyethylene glycol 3350 (Miralax) 17 grams PO DAILY 510 grams 2RF Coding Level of Care Code Est Pt Level 3 (34871) Diagnoses Sessile serrated polyp of colon D12.6 Status post colonoscopy Z98.890 Slow transit constipation K59.01 Constipation type: slow transit constipation Diverticulosis K57.90 Time Spent (min) 30 Comment 20 minutes spent with patient and additional 10 minutes spent reviewing her records
[2023-06-27 09:05] VITALS: BP 122/74; PULSE 72; BMI 24.1
== END 2023-06-27 09:28 | disposition home or self-care (01) ==
PROVIDERS: PCP Internal Medicine; Visit Provider Nurse Practitioner Family
DX: D12.6 Benign neoplasm of colon, unspecified (principal); Z98.890 Other specified postprocedural states; K59.01 Slow transit constipation; K57.90 Diverticulosis of intestine, part unspecified, without perforation or abscess without bleeding
CPT/HCPCS: 99213

== ENCOUNTER → 2023-06-27 08:53 | Outpatient (BNVA) | payer OTHER, SELFPAY | PROVIDERS: PCP Internal Medicine; Visit Provider Nurse Practitioner Family | DX: K57.90 Diverticulosis of intestine, part unspecified, without perforation or abscess without bleeding (principal); K59.01 Slow transit constipation; D12.6 Benign neoplasm of colon, unspecified; Z98.890 Other specified postprocedural states | CPT/HCPCS: 99212 ==

== ENCOUNTER 2023-11-01 14:02 | Emergency (ER) | payer OTHER, SELFPAY ==
[2023-11-01 14:09] VITALS: BP 135/78; PULSE 69; RESP 16; TEMP 36.3; O2SAT 100; BMI 24.9
--- NOTE | 2023-11-01 14:09 | ED_ITS ---
HPI - General Adult General Chief complaint: Headache Stated complaint: Migraine 4 days Related Data Home Medications ?Medication ?Instructions ?Recorded ?Confirmed sumatriptan succinate 50 mg tablet 50 mg PO 06/27/23 Previous Rx's ?Medication ?Instructions ?Recorded polyethylene glycol 3350 17 17 g PO DAILY #510 grams 06/27/23 gram/dose oral powder (Miralax) Allergies Allergy/AdvReac Type Severity Reaction Status Date / Time No Known Allergies Allergy Verified 11/01/23 14:10 [No Known Allergies*] [facility] Past Medical History Medical History (Updated 11/02/23 @ 18:25 by Kalpana Alamo NP) Diverticulosis Dysmenorrhea Heavy menstrual bleeding Migraine Hx of LEEP (loop electrosurgical excision procedure) of cervix complicating Hx of abnormal cervical Pap smear Neurocysticercosis History of pre-eclampsia History of stroke Surgical History H/O tubal ligation History of colposcopy Family History Family History Sister Breast cancer in female Social History Social History Housing: House Alcohol intake: current Alcohol intake frequency: does not drink Alcohol type: beer and wine Patient Tobacco Use Status: Never used Tobacco e-Cigarette/Vaping Use: Never Used Advance Directives: No Advance Directives Information Provided: No Current occupational status: unemployed Cognitive needs: No Hearing needs: No Vision needs: No Physical Exam ED Vital Signs: Vital Signs - 24 hr 11/01/23 14:09 Temperature 97.3 F Pulse Rate 69 Respiratory Rate 16 Blood Pressure 135/78 Pulse Oximetry 100 Oxygen Delivery Method Room Air BMI result Body Mass Index 24.9 Course Course Course Narrative: This is a rapid medical exam performed by Sony Alamo NP: Additional HPI, ROS, PE not included below will be deferred to primary provider. Patient is a 47-year-old female with history of CVA, migraines presenting to the ED with complaint of migraine for the past 4 days. Feels similar to prior migraines. Is currently out of her sumatriptan. Reports nausea and vomiting, photophobia, sensitive to smells. Denies any weaknes, numbness, tingling to extremities. A+Ox3, no focal neurological deficits, ambulating with steady gait. Plan: medicate with zofran in triage Medications Administered Discontinued Medications Generic Name Dose Route Start Last Admin Trade Name Jeremyq PRN Reason Stop Dose Admin Ondansetron HCl 4 mg 11/01/23 14:12 11/01/23 14:17 Ondansetron Odt 4 Mg Tab.Ricardo WORKMANINGU 11/01/23 14:13 4 mg ONCE ONE Administration Discharge Plan Discharge Clinical Impression: Headache Patient Disposition: Left W/O Completing Treatment Prescriptions: No Action sumatriptan succinate 50 mg tablet 50 mg PO polyethylene glycol 3350 [Miralax] 17 gram/dose powder 17 g PO DAILY Qty: 510 2RF Discharge Date/Time: 11/01/23 21:22
[2023-11-01] MEDS: Ondansetron ODT 4 MG TAB.RAPDIS TRANSLINGU (14:17)
== END 2023-11-01 21:22 | disposition left against medical advice (07) ==
PROVIDERS: Emergency Provider Emergency Medicine; PCP Internal Medicine
DX: R51.9 Headache, unspecified (principal)
CPT/HCPCS: 99281; 99283

== ENCOUNTER 2024-03-30 07:31 | Outpatient (REF) | payer OTHER, SELFPAY ==
--- NOTE | ~2024-03-30 | MM_ITS ---
EXAMINATION: MM SCREENING DIGITAL BREAST TOMOSYNTHESIS, BILATERAL CLINICAL INFORMATION: Screening. Asymptomatic. COMPARISON: Mammography: Comparison is made with available priors TECHNIQUE: Digital breast mammography with tomosynthesis is performed in both the craniocaudal and mediolateral oblique views along with computer-aided detection (CAD). FINDINGS: The breasts are heterogeneously dense, which may obscure small masses (ACR BI-RADS breast composition Category c). There are no significant masses, abnormal calcifications, or other abnormalities. MM/MM tomosynthesis screening BI IMPRESSION: No mammographic evidence of malignancy. ASSESSMENT: BI-RADS BI-RADS 1 - Negative RECOMMENDATION: Routine annual mammography screening. 1 year F/U This examination should not preclude the clinical evaluation of a suspicious palpable abnormality. This patient's information was entered into a reminder system with a target due date for their next mammogram. Electronically signed by: Azul Phelps DO 04/09/2024 12:50 PM LINDA
== END 2024-03-30 07:32 | disposition home or self-care (01) ==
LOC: HO.MAMMO 07:31
PROVIDERS: PCP Internal Medicine; Visit Provider Internal Medicine
DX: Z12.31 Encounter for screening mammogram for malignant neoplasm of breast (principal)
CPT/HCPCS: 77063; 77067

== ENCOUNTER → 2024-03-30 07:45 | Outpatient (BNV) | payer OTHER, SELFPAY | PROVIDERS: PCP Internal Medicine; Visit Provider Internal Medicine | DX: Z12.31 Encounter for screening mammogram for malignant neoplasm of breast (principal) | CPT/HCPCS: 77063; 77067 ==

== ENCOUNTER 2024-04-02 09:38 | Emergency (ER) | payer OTHER, SELFPAY ==
[2024-04-02 10:19] VITALS: BP 125/84; PULSE 69; RESP 16; TEMP 35.6; O2SAT 100; BMI 24.0
--- NOTE | 2024-04-02 18:11 | PC.NURSE ---
no answer at 1800 roll call.
== END 2024-04-02 18:31 | disposition left against medical advice (07) ==
LOC: HO.ED 18:26
PROVIDERS: Emergency Provider Emergency Medicine; PCP Internal Medicine
DX: M54.9 Dorsalgia, unspecified (principal); Z53.21 Procedure and treatment not carried out due to patient leaving prior to being seen by health care provider
CPT/HCPCS: 99281

== ENCOUNTER 2024-10-01 09:39 | Outpatient (AMB) | payer OTHER, SELFPAY ==
--- NOTE | 2024-10-01 10:21 | MHC.PC.OV ---
Vital Signs 10/01/24 10:24 Height 5 ft 2 in Weight 114 lb BMI 20.8 BP 122/90 H Blood Pressure Location Lt brachial Position Sitting Respiration 16 Pulse 73 Pulse Source Pulse Oximeter Temp 97.7 F Temp Source Oral Pulse Oximetry (%) 100 Oxygen Delivery Method Room Air Intake Visit Reasons: Lt breast lump Intake Note: Pt is here today for her LT breast lump: noticed last night Allergies No Known Allergies [No Known Allergies*] Allergy (Verified 10/01/24 10:48) Medication List - Last Reconciled 10/01/24 by Viridiana Vance MD sumatriptan succinate 50 mg PO Tobacco use date assessed: 10/01/24 Dental Screening Dental Screen Date: 10/01/24 Did you have a dental visit in the last 12 months?: Yes Did you have a dental problem in the last 6 months where you did not have access to dental care?: No Was dental information given to patient?: Patient has dentist HPI Lt breast lump HPI Details 48-year-old lady here today stating that she felt a lump on her le breast while showering D other day. Had a negative mammogram last March 2024 but breast were dense. Patient states that the mass is slightly tender to palpation,. Sister who is 10 years older than her was diagnosed with breast cancer in her late 40s, underwent chemotherapy and mastectomy. As per patient , her sister had genetic testing which came back negative. [facility] Medical History Mass of left breast Diverticulosis Dysmenorrhea Heavy menstrual bleeding Migraine Hx of LEEP (loop electrosurgical excision procedure) of cervix complicating Hx of abnormal cervical Pap smear Neurocysticercosis History of pre-eclampsia History of stroke Surgical History H/O tubal ligation History of colposcopy Family History Sister Breast cancer in female Social History Housing: House Alcohol intake: current Alcohol intake frequency: does not drink Alcohol type: beer and wine Patient Tobacco Use Status: Never used Tobacco e-Cigarette/Vaping Use: Never Used Current occupational status: unemployed Cognitive needs: No Hearing needs: No Vision needs: No Female Reproductive History Menstrual Age of Menarche: 12 Questionnaire PHQ-9 Over the last 2 weeks, how often have you been bothered by any of the following problems? 1. Little interest or pleasure in doing things: not at all 2. Feeling down, depressed, or hopeless: not at all 3. Trouble falling or staying asleep, or sleeping too much: not at all 4. Feeling tired or having little energy: not at all 5. Poor appetite or overeating: not at all 6. Feeling bad about yourself - or that you are a failure or have let yourself or your family down: not at all 7. Trouble concentrating on things, such as reading the newspaper or watching television: not at all 8. Moving or speaking so slowly that other people could have noticed. Or the opposite - being so fidgety or restless that you have been moving around a lot more than usual: not at all 9. Thoughts that you would be better off or of hurting yourself in some way: not at all Total score: 0 Depression Screening Interpretation: Negative Depression Screening Done: Yes 76162 - PHQ-9 Billing: Yes Source: Developed by Drs. Aldo Briones, Ruth Leon, Juan Lew and colleagues, with an educational jose from [employer]. Thrive Questionnaire Date Thrive assessed: 10/01/24 I am a: Patient What is your living situation today?: I have a steady place to live Within the past 12 months, did the food you bought not last and you didn't have the money to get more?: Never true Within the past 12 months, did you worry whether your food would run out before you got money to buy more?: Never true Do you have trouble paying for medicines?: No Do you have trouble getting transportation to medical appointments?: No Do you have trouble paying your heating and electricity bill?: No Do you have trouble taking care of your child, family member or friend?: No Do you have trouble with day-to-day activities such as bathing, preparing meals, shopping, managing finances, etc.?: No Are you currently unemployed and looking for a job?: No Are you interested in more education?: No Please select the resources that you would like help with: None Currently or been in a relationship where the following occur: I choose not to answer THRIVE Score: 0 AUDIT C Alcohol Use Questionnaire (AUDIT-C) 1. How often do you have a drink containing alcohol?: Never Total Score: 0 GENEVIEVE-7 AMB Questionnaire GENEVIEVE-7 Date GENEVIEVE - 7 assessed: 10/01/24 Feeling nervous, anxious, or on edge: 0 = Not at all Not being able to stop or control worryin = Not at all Worrying too much about different things: 0 = Not at all Trouble relaxin = Not at all Being so restless that it is hard to sit still: 0 = Not at all Becoming easily annoyed or irritable: 0 = Not at all Feeling afraid as if something awful might happen: 0 = Not at all Total GENEVIEVE-7 score (0-4 normal; 5-9 mild; 10-14 moderate; 15-21 severe): 0 Source: Developed by Drs. Aldo Briones, Ruth Leon, Juan Lew and colleagues, with an educational jose from [employer]. GENEVIEVE-7 Assessment Billing GENEVIEVE-7 Assessment Tool: GENEVIEVE-7 Assessment 53804 Review of Systems Const Denies body aches, Denies fatigue and Reports weight loss ENT Reports no additional complaints Card Reports no additional complaints Resp Reports no additional complaints GI Reports no additional complaints Skin/Breast Reports as per HPI, Denies lesions and Denies rash Neuro Reports no additional complaints Endo Denies fatigue Corbin/Lymph Reports no additional complaints Physical exam (Primary Care) Vital Signs: Last Vital Signs Temp 97.7 F 10/01/24 10:24 Pulse 73 10/01/24 10:24 Resp 16 10/01/24 10:24 BP 122/90 H 10/01/24 10:24 Pulse Ox 100 10/01/24 10:24 Oxygen Delivery Method Room Air 10/01/24 10:24 BMI result Body Mass Index 20.8 Tobacco/Smoking Status: Tobacco use Status Tobacco use date assessed 10/01/24 10/01/24 10:24 Patient Tobacco Use Status Never used Tobacco 10/01/24 10:24 e-Cigarette/Vaping Use Never Used 10/01/24 10:24 PHQ-9: PHQ-9 Score PHQ-9: Total score 0 10/01/24 10:24 Depression Screening Interpretation: Negative Thrive Assessment: Date of Thrive Assessment Date Thrive assessed 10/01/24 10/01/24 10:24 Currently or been in a relationship where the following occur: I choose not to answer Const Other: Alert oriented x3, no acute distress noted ambulatory normal HENMT Head: Yes normocephalic Ears: hearing grossly normal bilaterally and external ears normal General nose exam: Normal external nose present Face and sinus: Yes face symmetric Mouth: Normal oral and palatal mucosa present, oropharynx normal and moist mucous membranes Neck Other: Thyroid nonpalpable Neck: Yes full ROM, Yes no lymphadenopathy and Yes supple Chest Other: Mobile slightly tender nodular mass at 12 o'clock position of left breast, no skin lesion, no nipple discharge, no axillary mass or lymphadenopathy palpated Chest palpation & inspection: normal inspection of the chest Resp Auscultation: clear to auscultation bilaterally Cardio Other: S1-S2 present regular rate and rhythm Coding Level of Care Code Est Pt Level 4 (95965) Diagnoses Mass overlapping multiple quadrants of left breast N63. Breast mass location: overlapping quadrants Additional Codes PHQ-9 - 74097 - PHQ-9 Billing: Yes ([id number]) GENEVIEVE-7 Assessment Billing - GENEVIEVE-7 Assessment Tool: GENEVIEVE-7 Assessment 43785 ([id number]) Assessment & Plan Assessment & Plan (1) Mass of left breast: Comment: 12 o'clock position left breast Code(s): N63.20 - Unspecified lump in the left breast, unspecified quadrant Category: Medical Qualifiers: Breast mass location: overlapping quadrants Qualified Code(s): N63.25 - Unspecified lump in the left breast, overlapping quadrants Plan: Stat breast ultrasound and stat diagnostic mammogram ordered, referred to breast surgeon for further evaluation management Orders: Orders MM tomosynthesis diagnostic BI Today N63.20 - Unspecified lump in the left breast, unspecified quadrant US breast LT complete Today N63.20 - Unspecified lump in the left breast, unspecified quadrant Referrals General Surgery Referral N63.20 - Unspecified lump in the left breast, unspecified quadrant, Z80.3 - Family history of malignant neoplasm of breast
[2024-10-01 10:24] VITALS: BP 122/90; PULSE 73; RESP 16; TEMP 36.5; O2SAT 100; BMI 20.8
== END 2024-10-01 12:13 | disposition home or self-care (01) ==
LOC: HO.HMCC 09:39
PROVIDERS: PCP Internal Medicine; Visit Provider Internal Medicine
DX: N63.25 Unspecified lump in the left breast, overlapping quadrants (principal)

== ENCOUNTER → 2024-10-01 09:39 | Outpatient (BNVA) | payer OTHER, SELFPAY | PROVIDERS: PCP Internal Medicine; Visit Provider Internal Medicine | DX: N63.25 Unspecified lump in the left breast, overlapping quadrants (principal); Z80.3 Family history of malignant neoplasm of breast | CPT/HCPCS: 96127; 99212 ==

== ENCOUNTER 2024-10-02 10:43 | Outpatient (AMB) | payer OTHER, SELFPAY ==
--- NOTE | 2024-10-02 11:07 | MHC.OFFVIS ---
Vital Signs 10/02/24 11:32 Height 5 ft 2 in Weight 114 lb BMI 20.8 BP 120/88 Intake Visit Reasons: Breast Pain/Lump Senior Account Representative: Senior Account Representative Present (Cece) Accompanied by: Self / Same As Patient Allergies No Known Allergies [No Known Allergies*] Allergy (Verified 10/02/24 11:26) Medication List - Last Reconciled 10/02/24 by Angela Romero CNM sumatriptan succinate 50 mg PO Is last menstrual period known: Yes Last menstrual period: 09/13/24 (That period lasted 5 days but then she did get another periods for 4 days on September 26.) Post menopausal: No Patient : No HPI HPI Breast Pain/Lump: Details: Patient is here because she wants another opinion about her left breast mass she recently lost weight and when she was examining herself she felt a firm mass in her left breast that she had not felt before she lost 20 lb in total. The weight loss was purposeful and she took 4 injections of Mounjaro which helped her not want to over eat and she had very healthy and is doing exercise and she feels much better and her body feels like it was prior to weight gain over the years. It was a little uncomfortable which was what perry her attention to it. She saw her primary care provider yesterday who also felt a mass and has ordered a mammogram and ultrasound and put in a referral to Dr. Dick but she does not know when the ultrasound or mammogram is going to be and she said the appointment with the surgeon was not until another month. Her sister had breast cancer at age 49, so she is anxious she has a 5-year-old. [facility] Medical History Mass of left breast Diverticulosis Dysmenorrhea Heavy menstrual bleeding Migraine Hx of LEEP (loop electrosurgical excision procedure) of cervix complicating Hx of abnormal cervical Pap smear Neurocysticercosis History of pre-eclampsia History of stroke Surgical History H/O tubal ligation History of colposcopy Family History Sister Breast cancer in female Social History Housing: House Alcohol intake: current Alcohol intake frequency: does not drink Alcohol type: beer and wine Patient Tobacco Use Status: Never used Tobacco e-Cigarette/Vaping Use: Never Used Current occupational status: unemployed Cognitive needs: No Hearing needs: No Vision needs: No Female Reproductive History Menstrual Age of Menarche: 12 Duration of menses: >10 days Date of last menstrual period: 09/13/24 (That period lasted 5 days but then she did get another periods for 4 days on September 26.) control method: none and permanent sterilization Total pregnancies: 3 Full term: 2 Ab spontaneous: 1 Date of last pap smear: 01/13/22 (negative pap smear, negative hpv ) History of abnormal pap smear: No History of STI: No Date of Mammogram: 03/30/24 (bi rad 1) Physical Exam Vital Signs: Last Vital Signs BP 120/88 10/02/24 11:32 BMI result Body Mass Index 20.8 Chest Other: Right breast no masses, no dimpling, new skin changes no peau d'orange no adnexal masses Left breast no dimpling, no skin changes, no peau d'orange. There is a solid feeling mass slightly irregular 3 cm rough circumference above right nipple between 10:00 and 01:00 Chest/axillae images: 1. breast mass. Assessment & Plan Assessment & Plan (1) Family history of breast cancer in first degree relative: Code(s): Z80.3 - Family history of malignant neoplasm of breast Category: Medical (2) Mass of left breast: Comment: 12 o'clock position left breast Code(s): N63.20 - Unspecified lump in the left breast, unspecified quadrant Category: Medical Qualifiers: Breast mass location: overlapping quadrants Qualified Code(s): N63.25 - Unspecified lump in the left breast, overlapping quadrants Plan I also palpate the mass just as her primary care provider did yesterday. Her diagnostic mammogram and breast ultrasound have already been ordered and are within the system to be scheduled currently and she also has had the referral placed for breast surgery. Discussed her concerns. Gave the patient the phone number for the mammography center and also for general surgery to assist her in her scheduling plans she tries to maneuver her appts. We will also schedule her for her annual exam going forward. Patient already has diagnostic mammogram and ultrasound order of the left breast and she also has She also has referral placed for breast surgery Schedule annual exam. Coding Level of Care Code Est Pt Level 3 (10242) Diagnoses Family history of breast cancer in first degree relative Z80.3 Mass overlapping multiple quadrants of left breast N63.25 Breast mass location: overlapping quadrants
[2024-10-02 11:32] VITALS: BP 120/88; BMI 20.8
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
== END 2024-10-02 13:42 | disposition home or self-care (01) ==
LOC: HO.HWSM 10:43
PROVIDERS: PCP Internal Medicine; Visit Provider Advanced Practice Midwife
DX: Z80.3 Family history of malignant neoplasm of breast (principal); N63.25 Unspecified lump in the left breast, overlapping quadrants
CPT/HCPCS: 99213

== ENCOUNTER → 2024-10-02 10:43 | Outpatient (BNVA) | payer OTHER, SELFPAY | PROVIDERS: PCP Internal Medicine; Visit Provider Advanced Practice Midwife | DX: N64.4 Mastodynia (principal); N63.25 Unspecified lump in the left breast, overlapping quadrants; Z80.3 Family history of malignant neoplasm of breast | CPT/HCPCS: 99212 ==

== ENCOUNTER 2025-04-05 07:59 | Outpatient (REF) | payer OTHER, SELFPAY ==
--- OUTSIDE RECORDS SUMMARY | 2025-04-05 08:02 | XMS_ITS | Clinical Summary ---
Author Organization [facility] ity Address [address] [place] [address] Care Team Providers Care Process Engineer Name Role Phone Viridiana Vance MD Primary Care Provider [phone] Surgical History Surgery Date Site/Laterality Comments OTHER [...] Cancer Screening: P ap Smear 06/07/2021 06/07/2018 Depression Screening 05/22/2024 Pneumococcal Vaccine: 50+ Ye ars (1 of 1 - PCV) 2024 Zoster Vaccines (1 of 2) 2024 COVID-19 Vaccine (2024-2 6 season) 2025 Influenza Vaccine (#1) 2025 DTaP,Tdap,and Td Vaccines (2 - Td or Tdap) 10/17/2028 10/17/2018 RSV Immunization Adult Patie nts (1 - 1-dose 75+ series) 2049 HIB Vaccines Aged Out No longer eligi [...] RESULTING AGENCY - 06/12/2018 5:16 PM EST [id number] THINPREP PAP, IMAGED: NEGATIVE FOR SQUAMOUS INTRAEPITHELIAL LESION AND MALIGNANCY . CLUE CELLS ARE PRESENT. YVETTE LORENZANA(ASCP) (CASE ELECTRONICALLY SIGNED 06 12 2018) RESULT OF APTIMA HIGH RISK HPV ASSAY: HIGH RISK HPV: NEGATIVE (SEROTYPES 16,18,31,33,35,39,45,51,52,56,58,59,66,68) COMPLETED ON 2018-06-12 ADEQUACY: SATISFACTORY ENDOCERVICAL/TRANSFORMATION ZONE COMPONENT PRESENT. SOURCE: THINPREP PAP HPV ANY DX: REFLEX 16 AND 18, CERVICAL, IMAGED CLINICAL INFORMATION: HPV ANY DIAGNOSIS. Z12.4, , PAP HX: UNKNOWN, LMP FROM OB DATING FORM: 03/27/18, Z34.81 Devorah Montes [facility] CYTOLOGY ORDERABLES Final Result HISTORICAL TESTING LAB RESULTING AGENCY from Last 3 Months or Most Recently Relevant to Health Maintenance Care Teams Process Engineer Relationship Specialty Start Date End Date Viridiana Vance MD [address] [place] [address] PCP - General Internal Medicine 05/29/18
== END 2025-04-05 08:00 | disposition home or self-care (01) ==
LOC: HO.MAMMO 07:59
PROVIDERS: PCP Internal Medicine; Visit Provider Internal Medicine
DX: Z12.31 Encounter for screening mammogram for malignant neoplasm of breast (principal)
CPT/HCPCS: 77063; 77067

== ENCOUNTER → 2025-04-05 08:00 | Outpatient (BNV) | payer OTHER, SELFPAY | PROVIDERS: PCP Internal Medicine; Visit Provider Internal Medicine | DX: Z12.31 Encounter for screening mammogram for malignant neoplasm of breast (principal) | CPT/HCPCS: 77063; 77067 ==